=== PATIENT | male | born 1945 | race Hispanic/Latino ===

== ENCOUNTER 2023-09-08 05:31 | Observation (INO) | payer MEDICARE ==
[2023-09-06 09:39] LABS: BASOPHILS # (AUTO) 0.01 K/uL (0.00-0.20); BASOPHILS % (AUTO) 0.2 % (0.0-5.0); EOSINOPHILS # (AUTO) 0.11 K/uL (0.00-0.70); EOSINOPHILS % (AUTO) 1.7 % (0.0-8.0); HEMATOCRIT 48.7 % (42-54); IMMATURE GRANULOCYTE ABSOLUTE 0.02 K/uL (0-1); LYMPHOCYTES # (AUTO) 0.9 K/uL (1.0-4.8); LYMPHOCYTES % (AUTO) 14.2 % (21.0-51.0); MEAN CORPUSCULAR HEMOGLOBIN 32.2 pg (27.0-33.0); MEAN CORPUSCULAR HGB CONC 32.2 g/dL (32.0-36.0); MEAN CORPUSCULAR VOLUME 99.8 fL (79-99); MONOCYTES # (AUTO) 0.7 K/uL (0.1-1.0); MONOCYTES % (AUTO) 10.8 % (3.0-13.0); NEUTROPHILS # (AUTO) 4.8 K/uL (1.8-7.7); NEUTROPHILS % (AUTO) 72.8 % (40.0-77.0); PLATELET COUNT (AUTO) 148 K/uL (130-400); RED BLOOD CELL COUNT(AUTO) 4.88 MIL/uL (4.50-6.20); RED CELL DISTRIBUTION WIDTH 16.9 % (11.0-15.5); WHITE BLOOD COUNT (AUTO) 6.6 K/uL (4.8-10.8)
[2023-09-06 09:50] VITALS: BP 129/85; PULSE 79; RESP 18
[2023-09-06 09:51] LABS: INR 1.14 (0.85-1.15); PROTHROMBIN TIME 13.3 SEC (9.6-11.6)
[2023-09-06 09:53] LABS: PARTIAL THROMBOPLASTIN TIME 30.5 SEC (26.3-35.5)
[2023-09-06 09:56] LABS: CREATININE 2.2 mg/dL (0.5-1.3); POTASSIUM 3.6 mmol/L (3.5-5.1)
[2023-09-08] VITALS (17 sets, daily range): BP systolic 106–141; BP diastolic 68–93; PULSE 69–85; RESP 14–20; O2SAT 96–97
[~2023-09-08] VITALS: Ht 177.8 cm; Wt 84.4 kg
[~2023-09-08 05:31] MED LIST: AEC81 PO; EZET10TA48 PO; FURO20TA4 PO; GABA-529 PO; LEVO112C4 PO; LOPE2CAP PO; METO-391 PO; OMEP40CA21 PO; ROSU40TA70 PO; SACU1TAB7 PO; SPIR25TA6 PO; TIRZ5PEN SQ
[2023-09-08] MEDS: 0.9%NACL 1000ML 1,000 ML IV ONE (06:59)
[2023-09-08 07:11] LABS: CREATININE 2.3 mg/dL (0.5-1.3); POTASSIUM 3.4 mmol/L (3.5-5.1)
[2023-09-08] MEDS ORDERED: CEFAZOLIN SODIUM 1 GM VIAL ONE ×2 (07:22→11:25)
[2023-09-08] MEDS ORDERED: LIDOCAINE HCL 1% MDV 50ML VIAL ONE (07:22)
[2023-09-08] MEDS ORDERED: IODIXANOL 320 MG/ML 100 ML VIAL ONE (07:22)
[2023-09-08] MEDS ORDERED: BUPIVACAINE/PF 0.25% 30ML VIAL IJ ONE (07:43)
[2023-09-08] MEDS ORDERED: MIDAZOLAM HCL 1 MG/ML 2ML VIAL ONE ×4 (07:53→13:24)
[2023-09-08] MEDS ORDERED: MEPERIDINE-PF 25 MG/ML SYG ONE ×4 (07:53→13:24)
[2023-09-08] MEDS ORDERED: IOHEXOL-350 75 ML VIAL IV ONE (10:46)
[2023-09-08] MEDS ORDERED: BACITRACIN 1 EACH PACKET TP ONE (13:27)
[2023-09-08] MEDS ORDERED: THROMBIN-JMI 5000 UNIT/VIAL TP ONE (13:37)
[2023-09-08] MEDS ORDERED: FUROSEMIDE 20 MG TABLET PO PRN (14:30)
[2023-09-08] MEDS ORDERED: GABAPENTIN 100 MG CAPSULE PO PRN (14:30)
[2023-09-08] MEDS ORDERED: ACETAMINOPHEN WITH CODEINE 1 TAB TAB PO PRN (14:30)
[2023-09-08] MEDS ORDERED: ACETAMINOPHEN 500 MG TABLET PO PRN (14:30)
[2023-09-08] MEDS: FUROSEMIDE 20MG VIAL IV ONE (18:05)
[2023-09-08] MEDS: Rosuvastatin Calcium 40 MG PO SCH (21:21)
[2023-09-08] MEDS: EZETIMIBE 10 MG TAB PO SCH (21:22)
[2023-09-08] MEDS: SACUBITRIL/VALSARTAN 1 EACH TABLET PO SCH (21:22)
[2023-09-09 03:12] LABS: BASOPHILS # (AUTO) 0.02 K/uL (0.00-0.20); BASOPHILS % (AUTO) 0.3 % (0.0-5.0); EOSINOPHILS # (AUTO) 0.05 K/uL (0.00-0.70); EOSINOPHILS % (AUTO) 0.6 % (0.0-8.0); HEMATOCRIT 45.9 % (42-54); IMMATURE GRANULOCYTE ABSOLUTE 0.03 K/uL (0-1); LYMPHOCYTES # (AUTO) 0.6 K/uL (1.0-4.8); LYMPHOCYTES % (AUTO) 7.5 % (21.0-51.0); MEAN CORPUSCULAR HEMOGLOBIN 32.4 pg (27.0-33.0); MEAN CORPUSCULAR HGB CONC 31.6 g/dL (32.0-36.0); MEAN CORPUSCULAR VOLUME 102.5 fL (79-99); MONOCYTES # (AUTO) 0.8 K/uL (0.1-1.0); MONOCYTES % (AUTO) 9.9 % (3.0-13.0); NEUTROPHILS # (AUTO) 6.4 K/uL (1.8-7.7); NEUTROPHILS % (AUTO) 81.3 % (40.0-77.0); PLATELET COUNT (AUTO) 109 K/uL (130-400); RED BLOOD CELL COUNT(AUTO) 4.48 MIL/uL (4.50-6.20); WHITE BLOOD COUNT (AUTO) 7.9 K/uL (4.8-10.8)
[2023-09-09 03:20] LABS: CREATININE 2.3 mg/dL (0.5-1.3); POTASSIUM 3.7 mmol/L (3.5-5.1)
[2023-09-09 04:19] VITALS: BP 128/87; PULSE 73; RESP 20
[2023-09-09] MEDS: LEVOTHYROXINE 112 MCG TABLET PO SCH (06:04)
[2023-09-09 08:12] VITALS: BP 119/78; PULSE 71; RESP 18
[2023-09-09 08:30] VITALS: O2SAT 96
[2023-09-09] MEDS: ASPIRIN 81 MG EC TAB PO SCH (09:47)
[2023-09-09] MEDS: SPIRONOLACTONE 25 MG TAB PO SCH (09:47)
[2023-09-09] MEDS: METOPROLOL SUCCINATE 50 MG TAB.SR.24H PO SCH (09:47)
[2023-09-09] MEDS ORDERED: TRAM50TA4 PO (11:15)
[2023-09-09 11:55] VITALS: BP 135/93; PULSE 69; RESP 16
[2023-09-10] MEDS ORDERED: PANTOPRAZOLE 40 MG TAB DR PO SCH (09:00)
[2023-09-10] MEDS ORDERED: LOPERAMIDE HCL 2 MG CAP PO SCH (09:00)
[2023-09-15] MEDS ORDERED: TIRZEPATIDE 5 MG SQ SCH (09:00)
== END 2023-09-09 14:29 | disposition home or self-care (01) ==
LOC: DAH 05:31 → DAHIP 05:32 → 2DH 15:19
PROVIDERS: ADMIT Internal Medicine Cardiovascular Disease; ATTEND Internal Medicine Cardiovascular Disease
DX: I42.8 Other cardiomyopathies (principal); I50.22 Chronic systolic (congestive) heart failure; I25.10 Atherosclerotic heart disease of native coronary artery without angina pectoris; E78.5 Hyperlipidemia, unspecified; E03.9 Hypothyroidism, unspecified; E11.9 Type 2 diabetes mellitus without complications; E66.9 Obesity, unspecified; G47.33 Obstructive sleep apnea (adult) (pediatric); Z79.899 Other long term (current) drug therapy
CPT/HCPCS: 80048 ×3; 85025 ×2; 85610; 85730; 36415 ×3; 93005; 33225; 93454; 33264; 96374; 82948 ×4; 71045 ×2; C1769 ×5; C1894 ×3; C1732; C1882; C1900; G0378 ×24; J0690 ×2; J7030; J0665; J2250 ×4; J1940; J3490 ×2; J2175 ×4; J1644; Q9967 ×2; A4215; A4223 ×3; A4222; A4221; A4663; A4216; A4606; 99156; 99157

== ENCOUNTER → 2023-12-18 | Outpatient (CLI) | payer MEDICARE ==
[~2023-12-18] MED LIST changes: -ROSU40TA70 PO; +ROSU40TA88 PO; +TRAM50TA4 PO
== END | disposition home or self-care (01) ==
LOC: SHCH 14:18
PROVIDERS: ATTEND Internal Medicine Cardiovascular Disease
DX: I50.22 Chronic systolic (congestive) heart failure (principal)
CPT/HCPCS: 93306

== ENCOUNTER 2024-01-23 06:06 | Emergency (ER) | payer MEDICARE ==
[~2024-01-23] VITALS: Ht 179.1 cm; Wt 77.1 kg
[~2024-01-23 06:06] MED LIST changes: -AEC81 PO; +APIX5TAB PO; +D3/E1CAP PO; +FOLI0.8C PO; -GABA-529 PO; +LEVO100C4 PO; -LEVO112C4 PO; +MAGN250T35 PO; -OMEP40CA21 PO; -TIRZ5PEN SQ; -TRAM50TA4 PO
[2024-01-23 06:13] VITALS: BP 137/92; PULSE 74; RESP 18; TEMP 98.2; O2SAT 99
== END 2024-01-23 08:20 | disposition home or self-care (01) ==
LOC: EDH 06:06
DX: R04.0 Epistaxis (principal); I13.0 Hypertensive heart and chronic kidney disease with heart failure and stage 1 through stage 4 chronic kidney disease, or unspecified chronic kidney disease; E11.22 Type 2 diabetes mellitus with diabetic chronic kidney disease; N18.30 Chronic kidney disease, stage 3 unspecified; I50.9 Heart failure, unspecified; I48.91 Unspecified atrial fibrillation; Z79.01 Long term (current) use of anticoagulants; Z79.82 Long term (current) use of aspirin; Z79.85 Long-term (current) use of injectable non-insulin antidiabetic drugs; Z79.890 Hormone replacement therapy; Z79.899 Other long term (current) drug therapy; Z88.2 Allergy status to sulfonamides; Z88.8 Allergy status to other drugs, medicaments and biological substances; Z95.810 Presence of automatic (implantable) cardiac defibrillator
CPT/HCPCS: 30901

== ENCOUNTER 2024-02-18 17:10 | Emergency (ER) | payer MEDICARE ==
[~2024-02-18] VITALS: Ht 177.8 cm; Wt 77.1 kg
[2024-02-18] MEDS ORDERED: AMOX1TAB16 PO (17:38)
--- NOTE | 2024-02-18 17:39 | ERN ---
ED Note History of Present Illness Stated Complaint: TOOTH PAIN Chief Complaint: Tooth Ache/Pain Time Seen by MD: 17:12 Time Seen by Midlevel: 17:12 Dictation: The patient is a 78 year old male with history of afib, dm, chf who presents to the emergency department with complains of left lower tooth pain. Patient reports he occasionally gets infections. Denies any fevers or other complaints. Allergies: Coded Allergies: Sulfa (Sulfonamide Antibiotics) (Unverified Allergy, Unknown, 09/06/23) dapagliflozin (Unverified Allergy, Unknown, 09/06/23) semaglutide (Unverified Allergy, Unknown, 09/06/23) Home Meds Active Scripts Amoxicillin/Potassium Clav (Amox Tr-K Clv 875-125 mg Tab) 875 Mg-125 Mg Tablet, 1 TAB PO BID for 7 Days, #14 TAB 0 Refills Prov:AKIL LINDQUIST PAPER BAG PRESS OPERATOR 02/18/24 Reported Medications D3/E/Se/Soy Isofl/Tocoph/Lycop (Prostate 2.4 Capsule) 1,200-15-35 Capsule, 1 EACH PO AM, CAP 01/19/24 Folic Acid (Folic Acid) 0.8 Mg Capsule, 1 CAP PO DAILY for 30 Days, #30 CAP 0 Refills 01/19/24 Magnesium (Magnesium) 250 Mg Tablet, 1 TAB PO DAILY for 30 Days, #30 TAB 0 Refills 01/19/24 Apixaban (Eliquis) 5 Mg Tablet, 1 TAB PO BID for 30 Days, #60 TAB 0 Refills 01/19/24 Levothyroxine Sodium (Levothyroxine) 100 Mcg Capsule, 100 MCG PO AM, CAP 01/19/24 Sacubitril/Valsartan (Entresto 49 mg-51 mg Tablet) 49 Mg-51 Mg Tablet, 1 TAB PO BID for 30 Days, #60 TAB 0 Refills 01/19/24 Loperamide HCl (Loperamide) 2 Mg Capsule, 2 MG PO QODAY, CAP 09/06/23 Furosemide (Furosemide) 20 Mg Tablet, 20 MG PO AD PRN for SWELLING, TAB 09/06/23 Rosuvastatin Calcium (Rosuvastatin Calcium) 40 Mg Tablet, 40 MG PO HS, TAB 09/06/23 Spironolactone (Spironolactone) 25 Mg Tablet, 12.5 MG PO DAILY, TAB 09/06/23 Metoprolol Succinate (Metoprolol Succinate) 50 Mg Tab.er.24h, 50 MG PO DAILY, TAB 09/06/23 Ezetimibe (Ezetimibe) 10 Mg Tablet, 10 MG PO HS, TAB 09/06/23 Past Medical History Past Medical History: A-Fib, CHF, Diabetes-Type II, Heart Disease, Hypertension Surgical History: Pacer/AICD RN Note Reviewed/Agreed w/PFSH: Yes Review of System Dictation Constitutional: Negative for fever,chills, and weight loss Eyes: Negative for injury, pain,redness, and discharge ENT: Positive for tooth pain Negative for injury or swelling Cardiovascular: Negative for chest pain, palpitations, and edema Respiratory: Negative for shortness of breath, cough, and wheezing, Abdomen/GI: Negative for abdominal pain, nausea, vomiting, diarrhea, and constipation Back: Negative for injury and pain : Negative for injury, bleeding and discharge MS/Extremity: Negative for injury and deformity Skin: Negative for rash, and discoloration Neuro: Negative for headache, weakness, numbness, tingling, and seizure Psych: Negative for suicide ideation, homicidal ideation, and hallucinations Initial Vital Sign VS Vital Signs Date Time Temp Pulse Resp B/P (MAP) Pulse Ox O2 Delivery O2 Flow Rate FiO2 02/18/24 17:11 98.1 85 20 127/81 Room Air Physical Exam Dictation General: awake, alert, NAD Head/Face: Normocephalic, atraumatic Eyes: PERRL, EOMI, vision at baseline ENT: oral cavity clear, TMs clear, slight erythema to lower left gums, tooth decay present, missing teeth. Neck: Trachea midline, supple, no nuchal rigidity Cardiovascular: RRR, normal S1/S2, No MRGs, no JVD Respiratory: CTAB, no respiratory distress, No rales or wheezes Abdomen: Soft, non-tender, non-distended, normal bowel sounds, no guarding or rebound. Skin: Warm, dry, normal turgor, no rash MS/Extremity: Pulses equal, no cyanosis, neurovascular intact, FROM Neuro: COAx4, GCS 15, strength 5/5, CN 2-12 intact, normal cerebellar exam, normal gait, Psych: Normal behavior, mood, and affect normal Results (Laboratory/Radiology) Labs Reviewed?: Yes ED Course ED Course Orders Procedure Category Date Status Time Acetaminophen 325 Tab PHA 02/18/24 Complete (Tylenol 325mg Tab 17:30 Amox/Clav 875/125mg PHA 02/18/24 Complete Tab (Augmentin 875-1 17:30 Current Medications Medications (Trade) Dose Ordered Sig/Frank Route PRN Reason Start Time Stop Time Status Last Admin Dose Admin Acetaminophen (TYLenol 325MG TAB) 650 mg ONCE ONCE PO 02/18/24 17:30 02/18/24 17:35 DC 02/18/24 18:15 Amoxicillin/ Clavulanate Potassium (Augmentin 875-125 Tablet) 1 each ONCE ONCE PO 02/18/24 17:30 02/18/24 17:35 DC 02/18/24 18:15 Vital Signs Date Time Temp Pulse Resp B/P (MAP) Pulse Ox O2 Delivery O2 Flow Rate FiO2 02/18/24 17:11 98.1 85 20 127/81 Room Air Medical Decision Making MDM The patient is a 78 year old male with history of afib, dm, chf who presents to the emergency department with complains of left lower tooth pain. Patient reports he occasionally gets infections. Denies any fevers or other complaints. Patient will be treated with antibiotics and instructed to follow up with dentist. Differential diagnosis: Dental pain, dental caries Previous outside records reviewed: Old ER visits. Need for hospitalization: Patient does not meet criteria for hospitalization. Need for emergency major/minor surgery: No Patient's prior external medical records from other ER visits were reviewed by me as indicated. Prior testing and results from previous visits were reviewed. Prior tests were taken into account with medical decision making and resource utilization, independent historian/historians were used to obtain complete medical history. I independently interpreted the test that were performed, results were reviewed by me and considered findings on radiology if ordered. Medical management and examination interpretation discussions were had by me with other qualified healthcare professionals as indicated for the patient's care. DX & DISP Disposition: Discharge Departure Impression: Primary Impression: Dental caries Additional Impression: Gingivitis Condition: Stable Scripts Amoxicillin/Potassium Clav (Amox Tr-K Clv 875-125 mg Tab) 875 Mg-125 Mg Tablet 1 TAB PO BID for 7 Days, #14 TAB 0 Refills Prov: AKIL LINDQUIST PAPER BAG PRESS OPERATOR 02/18/24 Additional Instructions: Please follow up with PCP in 1-2 days. You need to visit with your dentist for further management of infection. Take antibiotics as prescribed. If symptoms worsen please return to ER. Referrals: SELF,REFERRAL (PCP) Time of Disposition: 17:39 I have reviewed the case, and I agree with, Diagnosis and Plan I personally scribed for AKIL LINDQUIST ([email or web address]) on 02/18/24 at 17:46. Electronically submitted by Dhaval Bermeo ([email or web address]). AKIL LINDQUIST Feb 18, 2024 17:39
[2024-02-18] MEDS: acetaMINOPHEN 325 MG TAB PO ONE (18:15)
[2024-02-18] MEDS: AMOX/CLAV 875/125MG TAB PO ONE (18:15)
[2024-02-18 18:35] VITALS: BP 121/79; PULSE 80; RESP 18; TEMP 98.1; O2SAT 97
== END 2024-02-18 18:36 | disposition home or self-care (01) ==
LOC: EDH 17:10
DX: K02.9 Dental caries, unspecified (principal); K05.10 Chronic gingivitis, plaque induced; E11.9 Type 2 diabetes mellitus without complications; I11.0 Hypertensive heart disease with heart failure; I50.9 Heart failure, unspecified; Z79.01 Long term (current) use of anticoagulants; Z79.899 Other long term (current) drug therapy; Z88.2 Allergy status to sulfonamides; Z95.810 Presence of automatic (implantable) cardiac defibrillator
CPT/HCPCS: 99283

== ENCOUNTER 2024-07-03 19:45 | Inpatient (IN) | payer MEDICARE ==
[~2024-07-03] VITALS: Ht 172.7 cm; Wt 77.5 kg
[~2024-07-03 19:45] MED LIST changes: +AMOX1TAB16 PO; -LEVO100C4 PO; +LEVO100C5 PO
[2024-07-03 20:14] LABS: BASOPHILS # (AUTO) 0.02 K/uL (0.00-0.20); BASOPHILS % (AUTO) 0.3 % (0.0-5.0); EOSINOPHILS # (AUTO) 0.12 K/uL (0.00-0.70); EOSINOPHILS % (AUTO) 1.7 % (0.0-8.0); HEMATOCRIT 42.7 % (42-54); IMMATURE GRANULOCYTE ABSOLUTE 0.02 K/uL (0-1); LYMPHOCYTES # (AUTO) 0.5 K/uL (1.0-4.8); MEAN CORPUSCULAR HEMOGLOBIN 33.7 pg (27.0-33.0); MEAN CORPUSCULAR HGB CONC 32.3 g/dL (32.0-36.0); MEAN CORPUSCULAR VOLUME 104.1 fL (79-99); MONOCYTES # (AUTO) 0.7 K/uL (0.1-1.0); MONOCYTES % (AUTO) 9.2 % (3.0-13.0); NEUTROPHILS # (AUTO) 5.8 K/uL (1.8-7.7); NEUTROPHILS % (AUTO) 81.5 % (40.0-77.0); PLATELET COUNT (AUTO) 145 K/uL (130-400); RED CELL DISTRIBUTION WIDTH 16.4 % (11.0-15.5); WHITE BLOOD COUNT (AUTO) 7.2 K/uL (4.8-10.8)
[2024-07-03] MEDS: ASPIRIN 325MG TAB PO SCH (20:17)
--- NOTE | 2024-07-03 20:18 | HMCIMG ---
PORTABLE CHEST RADIOGRAPH INDICATION: cp COMPARISON: 09/09/2023 FINDINGS: quality assurance monitor final leads overlie the field of view. Left sided dual chamber pacer and continuous leads remain in customary position. Heart size is normal. The pulmonary vascularity and lorenza appear normal. Left costophrenic angle is blunted with subjacent linear opacities. No evidence for consolidation. No pneumothorax detected. IMPRESSION: Small left pleural effusion with subjacent passive atelectasis.
[2024-07-03 20:22] LABS: CREATININE 2.4 mg/dL (0.5-1.3); POTASSIUM 4.8 mmol/L (3.5-5.1)
[2024-07-03 20:24] LABS: INR 1.2 (0.85-1.15); PROTHROMBIN TIME 12.5 SEC (9.6-11.6)
[2024-07-03 20:25] LABS: PARTIAL THROMBOPLASTIN TIME 34.7 SEC (26.3-35.5)
[2024-07-03 20:27] LABS: MAGNESIUM 1.9 mg/dL (1.80-2.40)
[2024-07-03 20:44] LABS: B-TYPE NATRIURETIC PEPTIDE 1580 pg/mL (0-100)
--- NOTE | 2024-07-03 20:57 | ERN ---
ED Note History of Present Illness Stated Complaint: CHEST PAIN Chief Complaint: Chest Pain Time Seen by MD: 19:49 Time Seen by Midlevel: 19:49 Dictation: The Patient is a 79-year-old male with a history of AFib on Eliquis, hypertension, heart failure with AICD placement who presents to the emergency department via EMS with complaints of chest pain and nausea. Per EMS onset was three days ago the patient reports he started with the symptoms today after he was dropped off by the bus and had to walk 300 [address] to [address] house. Patient reports he was dyspneic, had nausea and diaphoretic but denies any chest pain. Allergies: Coded Allergies: Sulfa (Sulfonamide Antibiotics) (Unverified Allergy, Unknown, 09/06/23) dapagliflozin (Unverified Allergy, Unknown, 09/06/23) semaglutide (Unverified Allergy, Unknown, 09/06/23) Home Meds Active Scripts Amoxicillin/Potassium Clav (Amox Tr-K Clv 875-125 mg Tab) 875 Mg-125 Mg Tablet, 1 TAB PO BID for 7 Days, #14 TAB 0 Refills Prov:AKIL LINDQUIST STEAM AND POWER SUPERVISOR 02/18/24 Reported Medications D3/E/Se/Soy Isofl/Tocoph/Lycop (Prostate 2.4 Capsule) 1,200-15-35 Capsule, 1 EACH PO AM, CAP 01/19/24 Folic Acid (Folic Acid) 0.8 Mg Capsule, 1 CAP PO DAILY for 30 Days, #30 CAP 0 Refills 01/19/24 Magnesium (Magnesium) 250 Mg Tablet, 1 TAB PO DAILY for 30 Days, #30 TAB 0 Refills 01/19/24 Apixaban (Eliquis) 5 Mg Tablet, 1 TAB PO BID for 30 Days, #60 TAB 0 Refills 01/19/24 Levothyroxine Sodium (Levothyroxine) 100 Mcg Capsule, 100 MCG PO AM, CAP 01/19/24 Sacubitril/Valsartan (Entresto 49 mg-51 mg Tablet) 49 Mg-51 Mg Tablet, 1 TAB PO BID for 30 Days, #60 TAB 0 Refills 01/19/24 Loperamide HCl (Loperamide) 2 Mg Capsule, 2 MG PO QODAY, CAP 09/06/23 Furosemide (Furosemide) 20 Mg Tablet, 20 MG PO AD PRN for SWELLING, TAB 09/06/23 Rosuvastatin Calcium (Rosuvastatin Calcium) 40 Mg Tablet, 40 MG PO HS, TAB 09/06/23 Spironolactone (Spironolactone) 25 Mg Tablet, 12.5 MG PO DAILY, TAB 09/06/23 Metoprolol Succinate (Metoprolol Succinate) 50 Mg Tab.er.24h, 50 MG PO DAILY, TAB 09/06/23 Ezetimibe (Ezetimibe) 10 Mg Tablet, 10 MG PO HS, TAB 09/06/23 Past Medical History Past Medical History: A-Fib, CHF, Diabetes-Type II, Heart Disease, Hypertension Surgical History: Pacer/AICD RN Note Reviewed/Agreed w/PFSH: Yes Review of System Dictation Constitutional: Negative for fever,chills, and weight loss Eyes: Negative for injury, pain,redness, and discharge ENT: Negative for injury,pain or swelling Cardiovascular: Negative for palpitations, and edema positive for chest pain Respiratory: Negative for , cough, and wheezing, positive for shortness of breath Abdomen/GI: Negative for abdominal pain, vomiting, diarrhea, and constipation positive for nausea Back: Negative for injury and pain : Negative for injury, bleeding and discharge MS/Extremity: Negative for injury and deformity Skin: Negative for rash, and discoloration Neuro: Negative for headache, weakness, numbness, tingling, and seizure Psych: Negative for suicide ideation, homicidal ideation, and hallucinations Initial Vital Sign VS Vital Signs Date Time Temp Pulse Resp B/P (MAP) Pulse Ox O2 Delivery O2 Flow Rate FiO2 07/03/24 19:48 98.4 84 16 104/67 96 Room Air 0 07/03/24 20:08 21 Physical Exam Dictation Vital Signs reviewed General Appearance: Alert, oriented x 3, no acute distress, well developed, nour ished. Head and Face: non-traumatic. Eyes: PERRL, pink conjunctivas, eyelid no trauma, anterior chamber with arcus senilis. Ears: Pinnas intact and no signs of trauma or erythema ear canals clear and no discharge TM no erythema Nose: No discharge, no bleeding. Oropharynx: Mouth normal, tongue pink. pharynx clear,no erythema, tonsils no exudates, no abscesses noted, mucous memb shweta moist Neck: Supple, non-tender, no thyromegaly, no masses, no JVD, no bruits Breast:Deferred Chest:No tenderness, no crepitus, no paradoxical movement, no retractions Lungs:Clear, well-ventilated, symmetric, no rales, no wheezing, no rhonchi, no s tridor, good breath sounds bilaterally Heart: Regular rate, regular rhythm, no murmur, no gallops Vascular: no peripheral edema, Abdomen: Soft, positive bowel sounds, nondistended, no guarding, nontender, no rebound, no masses no hepatomegaly, no splenomegaly, no Jean-Baptiste's sign, no hernias. Rectal: Deferred Genital: Deferred Neurological: Normal speech, motor function intact, sensory function intact Musculoskeletal: Neck nontender, full range of motion, back nontender, full range of motion, Extremities: nontender, full range of motion Skin: Color pink, dry, no turgor, no rash, no lacerations, no abrasions, no contusions. Lymphatic: Deferred Results (Laboratory/Radiology) Laboratory/Radiology Laboratory Tests Test 07/03/24 20:06 White Blood Count 7.2 K/uL (4.8-10.8) Red Blood Count 4.10 MIL/uL (4.50-6.20) L Hemoglobin 13.8 g/dL (14.0-18.0) L Hematocrit 42.7 % (42-54) Mean Corpuscular Volume 104.1 fL (79-99) H Mean Corpuscular Hemoglobin 33.7 pg (27.0-33.0) H Mean Corpuscular Hemoglobin Concent 32.3 g/dL (32.0-36.0) Red Cell Distribution Width 16.4 % (11.0-15.5) H Platelet Count 145 K/uL (130-400) Mean Platelet Volume 11.6 fL (7.5-10.5) H Immature Granulocyte % (Auto) 0.3 % (0-1) Neutrophils (%) (Auto) 81.5 % (40.0-77.0) H Lymphocytes (%) (Auto) 7.0 % (21.0-51.0) L Monocytes (%) (Auto) 9.2 % (3.0-13.0) Eosinophils (%) (Auto) 1.7 % (0.0-8.0) Basophils (%) (Auto) 0.3 % (0.0-5.0) Neutrophils # (Auto) 5.8 K/uL (1.8-7.7) Lymphocytes # (Auto) 0.5 K/uL (1.0-4.8) L Monocytes # (Auto) 0.7 K/uL (0.1-1.0) Eosinophils # (Auto) 0.12 K/uL (0.00-0.70) Basophils # (Auto) 0.02 K/uL (0.00-0.20) Absolute Immature Granulocyte (auto 0.02 K/uL (0-1) Nucleated Red Blood Cells 0.0 % (0.0-0.19) White Cell Morphology Comment See comments Prothrombin Time 12.5 SEC (9.6-11.6) H Prothromb Time International Ratio 1.20 (0.85-1.15) H Activated Partial Thromboplast Time 34.7 SEC (26.3-35.5) Sodium Level 140 mmol/L (136-145) Potassium Level 4.8 mmol/L (3.5-5.1) Chloride Level 106 mmol/L (101-111) Carbon Dioxide Level 22 mmol/L (21-32) Blood Urea Nitrogen 29 mg/dL (7-18) H Creatinine 2.4 mg/dL (0.5-1.3) H Glomerular Filtration Rate Calc 27 mL/min (>90) Random Glucose 200 mg/dL (70-105) H Total Calcium 8.7 mg/dL (8.5-10.1) Magnesium Level 1.90 mg/dL (1.80-2.40) Total Creatine Kinase 70 U/L (21-232) Troponin I High Sensitivity 118 ng/L (4-75) *H B-Type Natriuretic Peptide 1580 pg/mL (0-100) H REASON: cp ORDERING PHYSICIAN: AKIL LINDQUIST PROCEDURE: CXR1VW - CHEST 1VW PORTABLE CHEST RADIOGRAPH INDICATION: cp COMPARISON: 09/09/2023 FINDINGS: real estate recruiter leads overlie the field of view. Left sided dual chamber pacer and continuous leads remain in customary position. Heart size is normal. The pulmonary vascularity and lorenza appear normal. Left costophrenic angle is blunted with subjacent linear opacities. No evidence for consolidation. No pneumothorax detected. IMPRESSION: Small left pleural effusion with subjacent passive atelectasis. Labs Reviewed?: Yes EKG: (+) rhythm (AFib, ventricular paced rhythm) EKG Comment: Date:07/03/2024 Time:1949 Ventricular rate:74 SD interval: QRS duration:155 QT/QTc: EKG interpretation: AFib, ventricular paced rhythm Reviewed by ED Attending no STEMIDr. Velazquez ED Course ED Course Orders Procedure Category Date Status Time Cbc With Differential LAB 07/03/24 Complete 20:02 B-Type Natriuretic LAB 07/03/24 Complete Peptide 20:02 Chest 1vw RAD 07/03/24 Resulted 20:02 12 Lead Ekg Tracing- EKG 07/03/24 Logged Technical 20:02 Magnesium LAB 07/03/24 Complete 20:02 Creatine Kinase, Total LAB 07/03/24 Complete 20:02 Troponin I High LAB 07/03/24 Complete Sensitivity 20:02 Aspirin 325mg Tab PHA 07/03/24 In Process (Aspirin 325mg Tab) 20:30 Urinalysis Profile LAB 07/03/24 Logged 20:02 Basic Metabolic Panel LAB 07/03/24 Complete 20:02 Pt And Ptt LAB 07/03/24 Complete 20:03 Drug Screen Urine LAB 07/03/24 Logged 20:06 Furosemide 20mg Vial PHA 07/03/24 Complete (Lasix 20mg Vial) 21:00 Troponin I High LAB 07/03/24 Logged Sensitivity 20:58 Edm Admit Bridge Order ADM 07/03/24 Verified 21:06 Current Medications Medications (Trade) Dose Ordered Sig/Frank Route PRN Reason Start Time Stop Time Status Last Admin Dose Admin Aspirin (Aspirin 325mg Tab) 325 mg ONCE PO 07/03/24 20:30 07/03/24 23:59 07/03/24 20:17 Furosemide (LASix 20MG VIAL) 20 mg ONCE ONCE IV 07/03/24 21:00 07/03/24 21:01 DC Vital Signs Date Time Temp Pulse Resp B/P (MAP) Pulse Ox O2 Delivery O2 Flow Rate FiO2 07/03/24 20:08 98.1 85 13 119/73 97 Room Air* 0 21 07/03/24 19:48 98.4 84 16 104/67 96 Room Air 0 HEART Score Response (Comments) Value History: High suspicion (+2) 2 EKG: Normal 0 Age: > 65yrs (+2) 2 Risk Factors: 3+ risk factors (+2) 2 Initial Troponin: 1-3x Normal Limit (+1) 1 HEART Score Risk: High Risk for MACE (7-10) Total 7 Medical Decision Making [facility] MDM: The Patient is a 79-year-old male with a history of AFib on Eliquis, hypertension, heart failure with AICD placement who presents to the emergency department via EMS with complaints of chest pain and nausea. Per EMS onset was three days ago the patient reports he started with the symptoms today after he was dropped off by the bus and had to walk [address] house. Patient reports he was dyspneic, had nausea and diaphoretic but denies any chest pain. CBC showed no leukocytosis, mild microcytic anemia, chemistry showed no electrolyte imbalance, glucose of 200, creatinine of 2.4, similar to from previous visits, troponin of 118, BNP of a 1580. X-ray showed small left pleural effusion with subjacent passive atelectasis. Patient currently with no chest pain. We will be admitted for further evaluation and management. Differential diagnosis: ACS, CHF exacerbation, electrolyte imbalance, dehydration, pneumonia, pneumothorax Comorbidities: AFib, CHF, hypertension, CKD Tests considered and not ordered secondary to shared decision making include: none Previous outside records reviewed: none Risk of complication and/or morbidity or mortality of patient management: The patient meets criteria for admission. Need for emergency major/minor surgery: No There are no social concerns with this patient. I independently interpreted the tests I ordered (labs, urinalysis, etc.). I discussed the case with the hospitalist for admission. [facility] who accepts admission I discussed the case with the following specialists: none. Historian: pateint. I independently interpreted imaging studies and EKGs that I ordered (US, CT, XR, EKG, etc.). External chart review: none. Medical management and examination interpretation discussions were had by me with other qualified healthcare professionals as indicated for the patient's care. Critical Care Note Critical Time: other (36) Comment(s) Total critical care time was 36 minutes. Excluding time for procedures. Management of critically ill patient with concern for acute decompensation. Management included interpretation of laboratory values and imaging, hemodynamics, time for consultation with consultants and admitting physician. DX & DISP Disposition: Inpatient Decision to Admit Date: Jul 03, 2024 Decision to Admit Time: 21:10 Departure Impression: Primary Impression: NSTEMI (non-ST elevated myocardial infarction) Additional Impressions: Chest pain, Elevated troponin, CHF exacerbation, CKD (chronic kidney disease), Uncontrolled diabetes mellitus with hyperglycemia Condition: Stable Referrals: HEIDI HALL MD (PCP) I have reviewed the case, and I agree with, Diagnosis and Plan AKIL LINDQUIST [facility] Jul 03, 2024 20:57
--- NOTE | 2024-07-03 21:10 | HP ---
[facility] HISTORY AND PHYSICAL Date of Service: Jul 03, 2024 Time of Service: 21:09 PCP: Siddhartha Corea HISTORY OF PRESENT ILLNESS: This is a 79-year-old male with past medical history of hypertension, hypothyroidism, atrial fibrillation, CHF with AICD, hyperlipidemia, BPH and diabetes who was brought by ambulance to the ED for complaints of chest pain and nausea which started 3 days ago.As per patient he was carrying groceries today and was dropped off by the bus and he had to walk 300 yards to his house.Upon a rrival to his house patient was short of breath but he managed to cook his food and eat his meal.Patient states he took a nap for 2 hours he said and when he woke up he was still having shortness of breath and jaw pain as well so he called his relative who is a nurse practitioner and instructed him to go to the ER ,thus prompted this admission.Patient also reports he never had chest discomfort only jaw pain and he asked the EMS for nitrostat but didn give him he said. Upon arrival to ER patient was not having chest pain but continues to be short of breath and he requested for oxygen.Seen and examined patient in the ER awake,alert and coherent on oxygen supplementation. Patient denies any chest pain,palpitation,nausea,vomiting,cough and shortness of breath. Latest vital signs temperature 98.1, heart rate 85, blood pressure 119/73, saturation 97% on room air. Labs: Hemoglobin 13, hematocrit 42, platelet count 145. Sodium 140, potassium 4.8, chloride 106, BUN 29, creatinine 2.4, GFR 27, glucose 200 trop onin 118, BNP 1580. Chest x-ray result revealed small left pleural effusion subjacent passive atelectasis. EKG result revealed AFib/a flutter and ventricular paced rhythm heart rate 74. While in the ER patient received furosemide 20 mg IV and aspirin 325 mg p.o. We will admit patient for further medical management. REVIEW OF SYSTEMS CONSTITUTIONAL: Denies fevers, chills, or night sweats. No unintentional weight loss reported. NEUROLOGICAL: Denies headache, amaurosis fugax, motor weakness, sensory deficit, vertigo/spinning sensation, gait abnormalities, or tremors. ENT: No hearing loss, otalgia, otorrhea, rhinitis, rhinorrhea, hoarseness, or sore throat. CARDIOVASCULAR: Denies any exertional angina, dyspnea on exertion, orthopnea, paroxysmal nocturnal dyspnea, palpitations, life-threatening arrhythmias, claudication. PULMONARY: Complaints of shortness of breaths Denies cough, phlegm/sputum, hemoptysis, pleuritic chest pain. SLEEP: Denies morning headaches, daytime somnolence or napping. Denies difficulty falling asleep, staying asleep, waking from sleep. Denies knowledge of snoring. GASTROINTESTINAL: Denies any type of dysphagia to either liquids or solids. Denies nausea, vomiting, pyrosis, early satiety, abdominal pain, diarrhea, constipation, or changes in stool consistency or caliber. Denies coffee-ground emesis, hematemesis, hematochezia, or melanotic stools. GENITOURINARY: Denies frequency, urgency, nocturia, hematuria or incontinence (Storage/Irritative symptoms.) Low urinary stream, straining to void, urinary intermittency or hesitancy, splitting of the voiding stream, terminal dribbling. ENDOCRINOLOGIC: Denies polyuria, polydipsia, polyphagia or heat/cold intolerances. HEMATOLOGIC: Denies thrombophilia/previous clots, or coagulopathy/bleeding disorders. ONCOLOGIC: Denies personal history of malignancy. DERMATOLOGIC: Denies rashes or pruritus. PSYCHIATRIC: Denies any suicidal or homicidal ideation. Denies hallucinations. PAST MEDICAL HISTORY: [ hypertension, hypothyroidism, atrial fibrillation, CHF with AICD, hyperlipidemia, BPH and diabetes ] PAST SURGICAL HISTORY: [ Left AICD , right eye surgery, nose surgery, cardiac catheterization, cholecystectomy] PAST SOCIAL HISTORY: [ Patient lives alone. Patient denies alcohol tobacco and recreational drug use ] FAMILY HISTORY: [ Noncontributory ] Coded Allergies: Sulfa (Sulfonamide Antibiotics) (Unverified Allergy, Unknown, 09/06/23) dapagliflozin (Unverified Allergy, Unknown, 09/06/23) semaglutide (Unverified Allergy, Unknown, 09/06/23) PHYSICAL EXAM GENERAL APPEARANCE: The patient is awake, alert, and oriented, in no acute cardiopulmonary distress. NEUROLOGICAL: Cranial nerves II-XII grossly intact. Motor is 5/5 in bilateral upper and lower extremities proximal to distal. No sensory deficits. HEENT: Face is symmetric. Pupils are equal and reactive. Extraocular movements are intact. NECK: Supple. No JVD. No thyromegaly. No submental, submandibular, pre- /postauricular, occipital or supraclavicular lymphadenopathy. CHEST: Normal chest expansion. No Telemetry. LUNGS: Absence of any rales, rhonchi or any wheezing. CARDIOVASCULAR: Regular. S1 and S2 normal. No appreciable rubs, murmurs or gallops. ABDOMEN: Soft, nontender, and nondistended. There is no rebound, voluntary guarding, or rigidity. : Deferred. No Solo. EXTREMITIES: Non-edematous and not cyanotic. No clubbing. Good capillary refill. SKIN: No skin breakdown. Vital Sign (Last 24 Hours) 07/03/24 20:08 Temp 98.1 Pulse 85 Resp 13 B/P (MAP) 119/73 Pulse Ox 97 O2 Delivery Room Air* O2 Flow Rate 0 FiO2 21 LABS: Laboratory: Test 07/03/24 20:06 Range/Units White Blood Count 7.2 4.8-10.8 K/uL Red Blood Count 4.10 L 4.50-6.20 MIL/uL Hemoglobin 13.8 L 14.0-18.0 g/dL Hematocrit 42.7 42-54 % Mean Corpuscular Volume 104.1 H 79-99 fL Mean Corpuscular Hemoglobin 33.7 H 27.0-33.0 pg Mean Corpuscular Hemoglobin Concent 32.3 32.0-36.0 g/dL Red Cell Distribution Width 16.4 H 11.0-15.5 % Platelet Count 145 130-400 K/uL Mean Platelet Volume 11.6 H 7.5-10.5 fL Immature Granulocyte % (Auto) 0.3 0-1 % Neutrophils (%) (Auto) 81.5 H 40.0-77.0 % Lymphocytes (%) (Auto) 7.0 L 21.0-51.0 % Monocytes (%) (Auto) 9.2 3.0-13.0 % Eosinophils (%) (Auto) 1.7 0.0-8.0 % Basophils (%) (Auto) 0.3 0.0-5.0 % Neutrophils # (Auto) 5.8 1.8-7.7 K/uL Lymphocytes # (Auto) 0.5 L 1.0-4.8 K/uL Monocytes # (Auto) 0.7 0.1-1.0 K/uL Eosinophils # (Auto) 0.12 0.00-0.70 K/uL Basophils # (Auto) 0.02 0.00-0.20 K/uL Absolute Immature Granulocyte (auto 0.02 0-1 K/uL Nucleated Red Blood Cells 0.0 0.0-0.19 % White Cell Morphology Comment See comments Prothrombin Time 12.5 H 9.6-11.6 SEC Prothromb Time International Ratio 1.20 H 0.85-1.15 Activated Partial Thromboplast Time 34.7 26.3-35.5 SEC Sodium Level 140 136-145 mmol/L Potassium Level 4.8 3.5-5.1 mmol/L Chloride Level 106 101-111 mmol/L Carbon Dioxide Level 22 21-32 mmol/L Blood Urea Nitrogen 29 H 7-18 mg/dL Creatinine 2.4 H 0.5-1.3 mg/dL Glomerular Filtration Rate Calc 27 >90 mL/min Random Glucose 200 H 70-105 mg/dL Total Calcium 8.7 8.5-10.1 mg/dL Magnesium Level 1.90 1.80-2.40 mg/dL Total Creatine Kinase 70 21-232 U/L Troponin I High Sensitivity 118 *H 4-75 ng/L B-Type Natriuretic Peptide 1580 H 0-100 pg/mL Current Medications Medications (Trade) Dose Ordered Sig/Frank Route PRN Reason Start Time Stop Time Status Last Admin Dose Admin Aspirin (Aspirin 325mg Tab) 325 mg ONCE PO 07/03/24 20:30 07/03/24 23:59 07/03/24 20:17 325 MG DIAGNOSTICS / RADIOLOGY: [ ] ASSESSMENT: Elevated troponin,jaw pain R/O ACS POA Acute on chronic heart failure POA Acute on chronic kidney disease POA Uncontrolled diabetes POA AICD status POA Atrial fibrillation/atrial flutter POA Hypertension POA Hyperlipidemia POA Hypothyroidism POA BPH POA PLAN: We will admit patient in PCCU We will start on heart healthy diet We will start on aspirin 81 mg p.o. daily We will start on furosemide 20 mg IV b.i.d. We will start on Famotidine 20 mg p.o. daily for GI prophylaxis We will replace electrolytes as needed per protocol We will start on insulin sliding scale AC & HS with hypoglycemia protocol We will add prn medication for fever,pain,cough and nausea We will reconcile home meds once medlist available We will trend troponin q.6 x3 We will follow up urine drug screen and urinalysis result We will request daily weight and strict I&O per nursing We will restrict fluid 1.5 L per day We will request labs in am We will seek Cardiology consultation We will seek Nephrology consultation Further orders to follow depending on above results Case discussed with attending physician and came up with above treatment and plan of care. ADVANCED CARE PLANNING 1. Which of the following were discussed? Hospice Care - No Therapeutic options - Yes Advance Directives - No Other discussions - 2. Discussed with who? Patient 3. Voluntary nature of this service was explained to the patient? Yes 4. Amount of time spent - __20 5. Reviewed by Physician? (if this service was performed by NPP) Yes Patient seen and examined by me. Agree with note by PAPER FOLDER SEE ADDITIONAL ORDERS PER CHART DISCUSSED WITH NURSING STAFF KIMMIE ALEMAN UPHOLSTERER APPRENTICE Jul 03, 2024 21:09
[2024-07-03] MEDS ORDERED: acetaMINOPHEN 325 MG TAB PO PRN (21:30)
[2024-07-03] MEDS ORDERED: NITROGLYCERIN 0.4 MG SL TAB SL PRN (21:30)
[2024-07-03] MEDS ORDERED: GLUCAGON 1MG KIT 1 MG ML IM PRN (21:30)
[2024-07-03] MEDS ORDERED: DEXTROSE 50%-WATER 50 ML DISP.SYRIN IV PRN (21:30)
[2024-07-03] MEDS ORDERED: ondanSETRON 4MG INJ IV PRN (21:30)
--- NOTE | 2024-07-03 21:38 | NUR ---
PROVIDER ASH AT BEDSIDE AT THIS TIME
[2024-07-03] MEDS: furoSEMIDE 20MG VIAL IV SCH (22:00)
[2024-07-03] MEDS: INSULIN humuLIN R 100 UNIT/ML 3ML SQ SCH (22:00)
[2024-07-03] MEDS: FAMOTIDINE 20MG TAB PO SCH (22:34)
[2024-07-03] MEDS: furoSEMIDE 20MG VIAL IV ONE (22:39)
[2024-07-04] VITALS (20 sets, daily range): BP systolic 98–131; BP diastolic 55–86; PULSE 64–86; RESP 13–81; TEMP 98–98.6; O2SAT 97–98
--- NOTE | 2024-07-04 01:36 | NUR ---
ATTEMPT TO GIVE REPORT AT THIS TIME. PENDING CALL BACK.
[2024-07-04 01:41] LABS: APPEARANCE,URINE CLEAR (CLEAR); BILIRUBIN,URINE NEGATIVE (NEGATIVE); COLOR,URINE LIGHT-YELLOW (YELLOW); GLUCOSE, URINE (UA) NEGATIVE (NEGATIVE); KETONES,URINE NEGATIVE (NEGATIVE); LEUKOCYTE ESTERASE ,URINE NEGATIVE Leu/uL (NEGATIVE); NITRATE,URINE NEGATIVE (NEGATIVE); PH,URINE 5.5 (5.0-8.0); PROTEIN,URINE NEGATIVE (NEGATIVE); UROBILINOGEN,URINE 0.2 mg/dL (0.2-1.0)
[2024-07-04 01:44] LABS: ADD UA MICROSCOPIC YES
[2024-07-04 01:45] LABS: BACTERIA,URINE RARE /HPF (None Seen); MUCUS,URINE RARE LPF (None Seen); WBC,URINE 0-1 /HPF (0-1)
[2024-07-04 01:47] LABS: AMPHET/METH SCREEN,URINE NEGATIVE (NEGATIVE); BARBITURATE SCREEN, URINE NEGATIVE (NEGATIVE); BENZODIAZEPINES SCREEN,URINE NEGATIVE (NEGATIVE); CANNABINOID SCREEN,URINE NEGATIVE (NEGATIVE); COCAINE SCREEN,URINE NEGATIVE (NEGATIVE); OPIATE SCREEN,URINE NEGATIVE (NEGATIVE); PHENCYCLIDINE SCREEN,URINE NEGATIVE (NEGATIVE)
--- NOTE | 2024-07-04 02:38 | NUR ---
REPORT GIVEN TO NELL MON AT THIS TIME
[2024-07-04 05:04] LABS: BASOPHILS # (AUTO) 0.04 K/uL (0.00-0.20); BASOPHILS % (AUTO) 0.3 % (0.0-5.0); EOSINOPHILS # (AUTO) 0.07 K/uL (0.00-0.70); EOSINOPHILS % (AUTO) 0.5 % (0.0-8.0); HEMATOCRIT 34.8 % (42-54); IMMATURE GRANULOCYTE ABSOLUTE 0.11 K/uL (0-1); LYMPHOCYTES # (AUTO) 1.5 K/uL (1.0-4.8); MEAN CORPUSCULAR HEMOGLOBIN 30.3 pg (27.0-33.0); MEAN CORPUSCULAR HGB CONC 32.8 g/dL (32.0-36.0); MEAN CORPUSCULAR VOLUME 92.6 fL (79-99); MONOCYTES # (AUTO) 1.1 K/uL (0.1-1.0); MONOCYTES % (AUTO) 8.2 % (3.0-13.0); NEUTROPHILS # (AUTO) 10.6 K/uL (1.8-7.7); NEUTROPHILS % (AUTO) 79.2 % (40.0-77.0); PLATELET COUNT (AUTO) 280 K/uL (130-400); RED BLOOD CELL COUNT(AUTO) 3.76 MIL/uL (4.50-6.20); RED CELL DISTRIBUTION WIDTH 13.4 % (11.0-15.5); WHITE BLOOD COUNT (AUTO) 13.3 K/uL (4.8-10.8)
[2024-07-04 05:12] LABS: HEMOGLOBIN A1C 6.4 % (4.0-6.0)
[2024-07-04 05:16] LABS: % IRON SATURATION 10.4 % (30-44)
[2024-07-04 05:17] LABS: ALBUMIN 2.8 g/dL (3.5-5.0); BILIRUBIN,TOTAL 0.3 mg/dL (0.2-1.0); CREATININE 1.5 mg/dL (0.5-1.3); MAGNESIUM 1.8 mg/dL (1.80-2.40); TOTAL PROTEIN, SERUM 6.4 g/dL (6.0-8.3)
[2024-07-04 05:33] LABS: B-TYPE NATRIURETIC PEPTIDE 201 pg/mL (0-100)
[2024-07-04] MEDS: levoTHYROxine 100 MCG TABLET PO SCH (06:23)
--- NOTE | 2024-07-04 06:55 | EKG ---
[facility] Test Date: 2024-07-03 Test Time: 19:50:07 Pat Name: DAVID MATHEW Department: [facility] Room: 208 1 Gender: M Electrician Helper: [id number] : 1945 Requested By: AKIL LINDQUIST Order Number: [id number] Reading MD: Michael Jefferson Measurements Intervals [place]kinson Rate: 74 P: 0 FL: 0 QRS: 203 QRSD: 155 T: 0 QT: 0 QTc: 0 Interpretive Statements Afib/flutter and ventricular-paced rhythm Biventricular paced rhythm Compared to ECG 09/06/2023 08:25:09 Ventricular premature complex(es) no longer present Electronically Signed On 07-05-2024 07:05:50 CDT by Michael Jefferson Please click the below link to view image of tracing.
--- NOTE | 2024-07-04 07:21 | NUR ---
PATIENT IN FOR SOB AND CHEST PAIN. PATIENT DENIES ANY CHEST PAIN THIS MORNING. INFORMED PATIENT OF ELEVATED TROPONIN AND CONTINUAL MONITORING. INFORMED PATIENT THAT HIS HOME MEDICATIONS WOULD BE CONTINUED, INCLUDING HIS DIURETICS, BETA DEDRA, AND ANTIHYPERTENSIVE MEDICATIONS. PATIENT VERBALIZED UNDERSTANDING. PAGED CARDIOLOGY FOR CONSULTATION OF PATIENT.
--- NOTE | 2024-07-04 08:28 | CONS ---
[facility] Cardiology Consultation Note Cardiology consult dictated for Mario Pickett MD Date of service 07/04/2024 Primary periodontist: Dr. Reyes Chief complaint: Jaw pain Reason for consult: Elevated troponin History of present illness: This is a 79-year-old male patient of Dr. Reyes presented via EMS. He started with symptoms after he walked 300 yd to his home developed chin and perioral pain that lasted approximately 30 minutes accompani ed by shortness of breath. This was nonexertional and not associated with nausea vomiting or diaphoresis. He experienced same symptoms the day before. On arrival 12 lead EKG demonstrated a paced rhythm with questionable atrial fibrillation atrial flutter and a controlled rate. BNP was 1580 and initial troponin of 118. Following troponin was 118 at 9:00 p.m. [place] 4:[place] [address]. He has a history of left heart catheterization August of 2023 with 30% mid diffuse LAD stenosis and 30% left main stenosis. He has history of nonischemic cardiomyopathy with last ejection fraction 15-20% on echocardiogram 08/12/2023. Study demonstrated right ventricle with oscillating thickening of the right atrial lead consistent with possible fibrotic stranding versus thrombus, moderate MR, moderate TR with akinetic anterior-septal wall. He has a history of biventricular ICD Medtronic Claria MRI compatible. BUN this admission 32 with a creatinine of 1.5 and a GFR of 48 with history of CKD 4. Currently the patient is comfortable without complaints or events overnight. 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 Implantation Medtronic 05/16/2014 status upgrade to a biventricular AICD with a Medtronic cleria MRI IMPREGNATING HELPER device 09/08/[address] [place] Ascencio. Allergies: Sulfa, Rebylsus, Farxiga Family history: Noncontributory Social history: Patient denies tobacco alcohol or illicit drug use Current medications: Atorvastatin, acetamide, spironolactone, Entresto, metoprolol succinate, Eliquis, aspirin, levothyroxine, furosemide IV. Please see MAR Review of blood work: Troponin high sensitivity 118, 118, 92222. Basic meta bolic panel with a sodium of 141, potassium 4.0, BUN of 32, creatinine of 1.5 and a GFR of 45 with magnesium of 1.8. CBC white blood cells 13.3 hemoglobin of 11.4, hematocrit 34.8 and platelets of 280. Physical exam: Blood pressure 122/57 pulse of 74 beats per minute and regular, lungs clear to auscultation O2 saturation 97% on room air. Neck is supple no jugular vein distention no carotid bruits. Lower extremities plus one edema bilaterally the patient is alert awake and oriented. All others within normal limits. Assessment: Angina Elevated troponin (118, 118, 40,711) Acute on chronic systolic congestive heart failure (BNP 1580) Left heart catheterization August of 2023 with 30% mid diffuse LAD stenosis and 30% left main stenosis. Nonischemic cardiomyopathy with last ejection fraction 15-20% on echocardiogram 08/12/2023. Medtronic 05/16/2014 status upgrade to a biventricular AICD with a Medtronic cleria MRI IMPREGNATING HELPER device 09/08/[address] [place] Ascencio. 08.12.2023 Echocardiogram LVEF 15-20% right ventricle with oscillating thickening of the right atrial lead consistent with possible fibrotic stranding versus thrombus, moderate MR, moderate TR with akinetic anterior-septal wall. Paroxysmal atrial fibrillation on chronic anticoagulation with Eliquis History of major bleed with Xarelto in 2016 secondary to esophageal AV malformation Hyperlipidemia Hypothyroidism CKD stage IIIB Diabetes mellitus type 2 Obstructive sleep apnea Hypertension Plan: At this point we have a 79-year-old male presented for evaluation of perioral and jaw pain that started several days back lasting approximately 30 minutes and alleviated with rest. He also reports shortness of breath with little exertion and lower extremity edema. Troponin initially was 118 but this morning we were [place] [address]. Twelve lead EKG demonstrated a paced rhythm with questionable atrial fibrillation or atrial flutter. He has a history of atrial fibrillation and low ejection fraction 15-20% on echocardiogram in 2023. Currently the patient has no complaints. He is NPO, we will obtain a stat troponin. Further recommendations as we continue to evaluate the patient. ATTESTATION BY PHYSICIAN I have seen and examined the patient. I reviewed the documentation, medical decision making, and treatment plan as noted by the mid-level provider above. I agree with the findings and plan of care. MARIO PICKETT MD, [facility] Jul 04, 2024 08:28 MARIO PICKETT MD Jul 04, 2024 10:52
[2024-07-04] MEDS: SPIRONOLACTONE 25 MG TAB PO SCH (08:54)
[2024-07-04] MEDS: ASPIRIN 81 MG EC TAB PO SCH (08:54)
[2024-07-04] MEDS: APIXaban 5 MG TABLET PO SCH (08:55)
[2024-07-04] MEDS: SACUBITRIL/VALSARTAN 1 EACH TABLET PO SCH (08:55)
[2024-07-04] MEDS: metOPROLol sucCINATE 50 MG TAB.SR.24H PO SCH (08:56)
[2024-07-04] MEDS: [UNRECOGNIZED DRUG - MIXTURE] PO SCH (08:57)
[2024-07-04] MEDS: MAGNESIUM TABLET PO SCH (08:57)
[2024-07-04] MEDS ORDERED: 0.9% NACL 500ML IV.SOLN 500 ML IV SCH (11:00)
--- NOTE | 2024-07-04 11:43 | PN ---
[facility] PROGRESS NOTE Date of Service: Jul 04, 2024 Time of Service: 11:39 SUBJECTIVE: This is a 79-year-old male with past medical history of hypertension, hypothyroidism, atrial fibrillation, CHF with AICD, hyperlipidemia, BPH and diabetes who was brought by ambulance to the ED for complaints of chest pain and nausea which started 3 days ago. As per patient he was carrying groceries and was dropped off by the bus and he had to walk 300 yards to his house. Upon arrival to his house patient was short of breath but he managed to cook his food and eat his meal. Patient stated he took a nap for 2 hours he said and when he woke up he was still having shortness of breath and jaw pain as well so he called his relative who is a nurse practitioner and instructed him to go to the ER ,thus prompted this admission. Upon arrival to ER patient was not having chest pain but continued to be short of breath and he requested for oxygen. Seen and examined patient in the ER awake,alert and coherent on oxygen supplementation. Patient denied any chest pain,palpitation,nausea,vomiting,cough and shortness of breath. In the ER latest vital signs temperature 98.1, heart rate 85, blood pressure 119/73, saturation 97% on room air. In the ER Labs: Hemoglobin 13, hematocrit 42, platelet count 145. Sodium 140, potassium 4.8, chloride 106, BUN 29, creatinine 2.4, GFR 27, glucose 200 troponin 118, BNP 1580. Chest x-ray result revealed small left pleural effusion subjacent passive atelectasis. EKG result revealed AFib/a flutter and ventricular paced rhythm heart rate 74. While in the ER patient received furosemide 20 mg IV and aspirin 325 mg p.o. Patient was admitted for further evaluation and medical management 07/04 patient is seen and examined at bedside, alert oriented x3, hemodynamically stable, following commands, denied chest pain, no shortness shortness for breath, no nausea, no vomiting, no abdominal discomfort. REVIEW OF SYSTEMS CONSTITUTIONAL: Denies fevers, chills, or night sweats. No unintentional weight loss reported. NEUROLOGICAL: Denies headache, amaurosis fugax, motor weakness, sensory deficit, vertigo/spinning sensation, gait abnormalities, or tremors. ENT: No hearing loss, otalgia, otorrhea, rhinitis, rhinorrhea, hoarseness, or sore throat. CARDIOVASCULAR: Denies any exertional angina, dyspnea on exertion, orthopnea, paroxysmal nocturnal dyspnea, palpitations, life-threatening arrhythmias, claudication. PULMONARY: Complaints of shortness of breaths Denies cough, phlegm/sputum, hemoptysis, pleuritic chest pain. SLEEP: Denies morning headaches, daytime somnolence or napping. Denies di fficulty falling asleep, staying asleep, waking from sleep. Denies knowledge of snoring. GASTROINTESTINAL: Denies any type of dysphagia to either liquids or solids. Denies nausea, vomiting, pyrosis, early satiety, abdominal pain, diarrhea, constipation, or changes in stool consistency or caliber. Denies coffee-ground emesis, hematemesis, hematochezia, or melanotic stools. GENITOURINARY: Denies frequency, urgency, nocturia, hematuria or incontinence (Storage/Irritative symptoms.) Low urinary stream, straining to void, urinary intermittency or hesitancy, splitting of the voiding stream, terminal dribbling. ENDOCRINOLOGIC: Denies polyuria, polydipsia, polyphagia or heat/cold intolerances. HEMATOLOGIC: Denies thrombophilia/previous clots, or coagulopathy/bleeding disorders. ONCOLOGIC: Denies personal history of malignancy. DERMATOLOGIC: Denies rashes or pruritus. PSYCHIATRIC: Denies any suicidal or homicidal ideation. Denies hallucinations. PHYSICAL EXAM GENERAL APPEARANCE: The patient is awake, alert, and oriented, in no acute cardiopulmonary distress. NEUROLOGICAL: Cranial nerves II-XII grossly intact. Motor is 5/5 in bilateral upper and lower extremities proximal to distal. No sensory deficits. HEENT: Face is symmetric. Pupils are equal and reactive. Extraocular movements are intact. NECK: Supple. No JVD. No thyromegaly. No submental, submandibular, pre- /postauricular, occipital or supraclavicular lymphadenopathy. CHEST: Normal chest expansion. No Telemetry. LUNGS: Absence of any rales, rhonchi or any wheezing. CARDIOVASCULAR: Regular. S1 and S2 normal. No appreciable rubs, murmurs or gallops. ABDOMEN: Soft, nontender, and nondistended. There is no rebound, voluntary guarding, or rigidity. : Deferred. No Solo. EXTREMITIES: Non-edematous and not cyanotic. No clubbing. Good capillary refill. SKIN: No skin breakdown. Vital Signs (last 8hr) Date Time Temp Pulse Resp B/P (MAP) Pulse Ox O2 Delivery O2 Flow Rate FiO2 07/04/24 09:00 70 16 116/81 97 Room Air 07/04/24 08:00 98 Room Air* 0 21 07/04/24 08:00 68 22 114/66 97 Room Air 07/04/24 07:00 98.4 64 17 98/67 96 Room Air 07/04/24 04:00 74 29 122/57 97 LABS: Laboratory: Test 07/04/24 11:25 07/04/24 08:39 07/04/24 04:29 07/03/24 20:06 Range/Units Whole Blood Glucose 78 # 70-110 MG/DL Troponin I High Sensitivity 904 *H 4-75 ng/L White Blood Count 13.3 #H 4.8-10.8 K/uL Red Blood Count 3.76 L 4.50-6.20 MIL/uL Hemoglobin 11.4 L 14.0-18.0 g/dL Hematocrit 34.8 L 42-54 % Mean Corpuscular Volume 92.6 79-99 fL Mean Corpuscular Hemoglobin 30.3 27.0-33.0 pg Mean Corpuscular Hemoglobin Concent 32.8 32.0-36.0 g/dL Red Cell Distribution Width 13.4 11.0-15.5 % Platelet Count 280 # 130-400 K/uL Mean Platelet Volume 10.9 H 7.5-10.5 fL Immature Granulocyte % (Auto) 0.8 0-1 % Neutrophils (%) (Auto) 79.2 H 40.0-77.0 % Lymphocytes (%) (Auto) 11.0 L 21.0-51.0 % Monocytes (%) (Auto) 8.2 3.0-13.0 % Eosinophils (%) (Auto) 0.5 0.0-8.0 % Basophils (%) (Auto) 0.3 0.0-5.0 % Neutrophils # (Auto) 10.6 H 1.8-7.7 K/uL Lymphocytes # (Auto) 1.5 1.0-4.8 K/uL Monocytes # (Auto) 1.1 H 0.1-1.0 K/uL Eosinophils # (Auto) 0.07 0.00-0.70 K/uL Basophils # (Auto) 0.04 0.00-0.20 K/uL Absolute Immature Granulocyte (auto 0.11 0-1 K/uL Nucleated Red Blood Cells 0.0 0.0-0.19 % Sodium Level 141 136-145 mmol/L Potassium Level 4.0 3.5-5.1 mmol/L Chloride Level 103 101-111 mmol/L Carbon Dioxide Level 24 21-32 mmol/L Blood Urea Nitrogen 32 H 7-18 mg/dL Creatinine 1.5 H 0.5-1.3 mg/dL Glomerular Filtration Rate Calc 48 >90 mL/min Random Glucose 102 70-105 mg/dL Hemoglobin A1c 6.4 H 4.0-6.0 % Estimated Average Glucose (eAG) 137 H 70-126 mg/dL Total Calcium 9.0 8.5-10.1 mg/dL Magnesium Level 1.80 1.80-2.40 mg/dL Iron Level 39 L 65-175 mcg/dL Total Iron Binding Capacity 373 250-450 mcg/dL Percent Iron Saturation 10.4 L 30-44 % Total Bilirubin 0.3 0.2-1.0 mg/dL Aspartate Amino Transf (AST/SGOT) 242 H 10-37 U/L Alanine Aminotransferase (ALT/SGPT) 50 12-78 U/L Alkaline Phosphatase 113 50-136 U/L B-Type Natriuretic Peptide 201 H 0-100 pg/mL Total Protein 6.4 6.0-8.3 g/dL Albumin 2.8 L 3.5-5.0 g/dL Triglycerides Level 119 30-200 mg/dL Cholesterol Level 189 <200 mg/dL LDL Cholesterol 125 H 0-99 mg/dL HDL Cholesterol 46 29-71 mg/dL White Cell Morphology Comment See comments Prothrombin Time 12.5 H 9.6-11.6 SEC Prothromb Time International Ratio 1.20 H 0.85-1.15 Activated Partial Thromboplast Time 34.7 26.3-35.5 SEC Total Creatine Kinase 70 21-232 U/L Test 07/03/24 01:28 Range/Units Urine Color LIGHT-YELLOW YELLOW Urine Appearance CLEAR CLEAR Urine pH 5.5 5.0-8.0 Urine Specific [place] 1.008 1.001-1.031 Urine Protein NEGATIVE NEGATIVE mg/dL Urine Glucose (UA) NEGATIVE NEGATIVE mg/dL Urine Ketones NEGATIVE NEGATIVE mg/dL Urine Occult Blood +- (TRACE) H NEGATIVE Urine Nitrate NEGATIVE NEGATIVE Urine Bilirubin NEGATIVE NEGATIVE mg/dL Urine Urobilinogen 0.2 0.2-1.0 mg/dL Urine Leukocyte Esterase NEGATIVE NEGATIVE Beth/uL Urine RBC 2-5 H 0-1 /HPF Urine WBC 0-1 0-1 /HPF Urine Bacteria RARE None Seen /HPF Urine Opiates Screen NEGATIVE NEGATIVE Urine Barbiturates Screen NEGATIVE NEGATIVE Urine Phencyclidine Screen NEGATIVE NEGATIVE Urine Amphetamines Screen NEGATIVE NEGATIVE Urine Benzodiazepines Screen NEGATIVE NEGATIVE Urine Cocaine Screen NEGATIVE NEGATIVE Urine Marijuana (THC) Screen NEGATIVE NEGATIVE Current Medications Medications (Trade) Dose Ordered Sig/Frank Route PRN Reason Start Time Stop Time Status Last Admin Dose Admin Acetaminophen (TYLenol 325MG TAB) 650 mg Q4H PRN PO MILD PAIN (1-3) 07/03/24 21:30 08/02/24 21:29 Acetaminophen (TYLenol 325MG TAB) 650 mg Q6H PRN PO TEMPERATURE GREATER THAN 101.5 07/03/24 21:30 08/02/24 21:29 Apixaban (EliquIS) 5 mg BID PO 07/04/24 09:00 07/04/24 10:49 DC 07/04/24 08:55 5 MG Aspirin (Aspirin 325mg Tab) 325 mg ONCE PO 07/03/24 20:30 07/03/24 23:59 DC 07/03/24 20:17 325 MG Aspirin (Aspirin 81mg Ec Tab) 81 mg DAILY PO 07/04/24 09:00 08/03/24 08:59 07/04/24 08:54 81 MG Atorvastatin Calcium (LIPItor 40MG) 80 mg HS PO 07/04/24 21:00 08/03/24 20:59 Dextrose (D50w) 50 ml AD PRN IV HYPOGLYCEMIA PROTOCOL 07/03/24 21:30 08/02/24 21:29 EZETIMIBE (Zetia) 10 mg HS PO 07/04/24 21:00 08/03/24 20:59 Famotidine (Pepcid 20mg Tab) 20 mg DAILY PO 07/03/24 22:00 08/02/24 21:59 07/04/24 08:55 20 MG Furosemide (LASix 20MG VIAL) 20 mg BID IV 07/03/24 22:00 08/02/24 21:59 07/04/24 08:53 20 MG Glucagon (Glucagon 1mg Kit) 1 mg AD PRN IM HYPOGLYCEMIA PROTOCOL 07/03/24 21:30 08/02/24 21:29 Home Med (Home Medication) DAILY PO 07/04/24 09:00 08/03/24 08:59 Home Med (Home Medication) DAILY PO 07/04/24 09:00 08/03/24 08:59 Insulin Human Regular (humuLIN R 100 UNIT/ML 3ML) INSULIN SLIDING SCAL... ACHS SQ 07/03/24 22:00 08/02/24 21:59 Levothyroxine Sodium (SYNTHroid 100MCG TAB) 100 mcg SYN PO 07/04/24 06:30 08/03/24 06:29 07/04/24 06:23 100 MCG Metoprolol Succinate (TopROL XL) 50 mg DAILY PO 07/04/24 09:00 08/03/24 08:59 07/04/24 08:56 50 MG Nitroglycerin (Nitrostat) 0.4 mg AD PRN SL CHEST PAIN 07/03/24 21:30 08/02/24 21:29 Ondansetron HCl (zoFRAN 4MG INJ) 4 mg Q6H PRN IV NAUSEA/VOMITING 07/03/24 21:30 08/02/24 21:29 Sacubitril/ Valsartan (Entresto 49 Mg-51 Mg Tablet) 1 each BID PO 07/04/24 09:00 08/03/24 08:59 07/04/24 08:55 1 EACH Sodium Chloride 500 ml @ 0 mls/hr Q0M IV 07/04/24 11:00 08/03/24 10:59 Spironolactone (Aldactone 25mg) 12.5 mg DAILY PO 07/04/24 09:00 08/03/24 08:59 07/04/24 08:54 12.5 MG DIAGNOSTICS / RADIOLOGY: [ ] ASSESSMENT: Elevated troponin,jaw pain R/O ACS POA Acute on chronic heart failure POA Acute on chronic kidney disease POA Uncontrolled diabetes POA AICD status POA Atrial fibrillation/atrial flutter POA Hypertension POA Hyperlipidemia POA Hypothyroidism POA BPH POA PLAN: Patient remains admitted to the intensive care unit Continue the patient on awake overnight monitor Patient evaluated by contract attorney. Patient's troponin initially 118, [place] [address], 12 lead EKG revealed a paced rhythm questionable atrial fibrillation or atrial flutter. Patient with a echocardiogram done in 2023 with a ejection fraction 15-20%. Plan for possible left heart catheterization tomorrow. Nephrology consultation requested, follow input and recommendations. Continue to monitor closely creatinine a.m.. NEURO: Minimize central acting medications as possible. Fall Precautions. Well lighted room through the day and minimize interruptions through the night to prevent acute delirium. PULMONARY: Supplemental 02 as needed BiPAP as necessary, for respiratory distress Titrate Fio2 to keep Spo2 > or = 90% DuoNebs and CPT as needed IS hourly while awake for pulmonary hygiene prn Out of bed to chair as tolerated Maintain aspiration precautions at all times CARDIOVASCULAR: Follow hemodynamics. Vital signs per facility protocol GI & NUTRITION: Continue nutritional support Aspirations precautions Prokinetic agents and laxatives as needed KIDNEYS & ELECTROLYTES: Strict monitoring of intake and output Daily weights Avoid nephrotoxic agents Monitor electrolytes and replace as needed Goal urine output of 30mL/hr or 0.5mL/kg/hr Medications to be dosed according to renal function. Avoid contrast if possible ENDOCRINE: Maintain blood glucose between 100-180 at all times. Insulin sliding scale for blood glucose management Hypoglycemia and hyperglycemia protocol in place INFECTIOUS DISEASE: Trend temperature, WBC and procalcitonin level Follow cultures, deescalate antibiotics as soon as possible. Panculture if new onset fever HEMATOLOGY & COAGULATION: Monitor H&H. Keep Hgb > 7 Transfuse 1 unit of PRBC for Hgb < 7 Transfuse 1 pack of platelets of platelets < 20, 000 Watch for any signs and symptoms of bleeding SKIN: Pressure ulcer prevention per facility protocol Specialty mattress as needed ORTHO/REHAB Continue PT/OT PRN: MEDICATIONS Tylenol 650 mg po every 4 hrs for fever zofran 4 mg IV every 6 hrs for n/v Hydralazine 5 mg IV every 4 hrs systolic pressure > 160 bowel regiment: lactulose 20 gm PO BID PRN constipation Supportive measures: Continue GI and DVT prophylaxis Disposition: Pending improvement in clinical condition All questions answered time spent: > 35 min GISSEL MOELLER MD Jul 04, 2024 11:43
[2024-07-04 12:01] LABS: INR 1.19 (0.85-1.15); PROTHROMBIN TIME 12.4 SEC (9.6-11.6)
[2024-07-04 12:03] LABS: PARTIAL THROMBOPLASTIN TIME 34.7 SEC (26.3-35.5)
[2024-07-04] MEDS ORDERED: COMPOUND IV MISC 1 EACH IVSOLN MISC PRN (13:00)
--- NOTE | 2024-07-04 13:10 | CONS ---
REFERRING PHYSICIAN: Dr. Arguello. REASON FOR CONSULTATION: Renal failure. HISTORY OF PRESENT ILLNESS: A 79-year-old male with a history of hypertension and known cardiomyopathy. The patient is status post AICD placement. The patient presented to the hospital with increasing shortness of breath and orthopnea. In the Emergency Room, the patient found to have significant volume overload and was started on the diuretics. Urine output has improved and the patient is being seen in consultation for all the above. Laboratory values do reveal an elevated BUN and creatinine. PAST MEDICAL HISTORY: Diabetes mellitus, hypertension, cardiomyopathy, BPH. PAST SURGICAL HISTORY: AICD, coronary catheterization. SOCIAL HISTORY: She lives independently. There is no active tobacco use. FAMILY HISTORY: No renal disease in the family. ALLERGIES: HE HAS AN ALLERGY TO SULFA. MEDICATIONS: All noted. REVIEW OF SYSTEMS: GENERAL: He is feeling somewhat improved. HEENT: No change in vision. No change in hearing, no nasal discharge, no sore throat. CARDIOVASCULAR: There is no current chest pain or palpitations. PULMONARY: As described above. GASTROINTESTINAL: The patient is tolerating a diet. MUSCULOSKELETAL: Complains of weakness. NEUROLOGIC: No history of seizures or focal deficits. PSYCHIATRIC: No history of hallucinations or psychosis. ENDOCRINE: Diabetes mellitus. No history of thyroid disease. HEME: There is no history of anemia or malignancy. PHYSICAL EXAMINATION: VITAL SIGNS: Blood pressure 116/81, pulse 60s. He is afebrile. GENERAL: He is a chronically ill male, elderly, lying in bed on the medical floor. HEENT: Head is atraumatic. Pupils equal, roving to light. Oropharynx is without exudate. Nares clear. NECK: There is no JVP. There is no thyromegaly, no mass. CARDIOVASCULAR: Regular. There is no S3, S4 gallop. LUNGS: Coarse with equal thoracic movement. ABDOMEN: Soft, nondistended, nontender. EXTREMITIES: Reveal no clubbing, no cyanosis. NEUROLOGICAL: He is awake. He is alert. He is oriented. SKIN: Reveals no rash or nodules. BACK: There is no CVA tenderness, no back deformities. LABORATORY DATA: Sodium 141, potassium is 4, BUN 32, creatinine 1.5. Hemoglobin A1c 6. Iron levels are noted. Troponin is 900, hemoglobin 11, hematocrit 34, white cell count is 13,000. Chest x-ray is consistent with pulmonary vascular congestion. IMPRESSION: 1. Acute on chronic renal failure. 2. Congestive heart failure. 3. Known cardiomyopathy. 4. Anemia. 5. Hypertension. PLAN: The patient does have significant renal dysfunction. The patient has been started on Entresto. For his cardiomyopathy, we will continue to monitor his hemodynamics closely. The patient's chemistries can all be rechecked in the a.m. We will obtain a renal ultrasound for completeness. The patient does have significant anemia and the patient will be given a 1 time dose of Venofer. All labs can be repeated in the a.m. We will continue to follow closely the patient with multiple questions, all of which were answered. TID: [id number] RECEIPT: [id number]
--- NOTE | 2024-07-04 14:02 | HMCIMG ---
US RENAL SONOGRAM HISTORY: Renal failure COMPARISON: None TECHNIQUE: Renal and bladder ultrasound study was performed. FINDINGS: The right kidney measures 9.1 x 5.7 x 3.3 cm. The left kidney measures 9.4 x 5.5 x 4 point cm. No evidence of hydronephrosis is seen of either kidney. There is a right renal mass near the midpole measuring 3 x 2.6 x 3.3 cm suspicious for neoplastic process. CT may be performed for complete evaluation. There is left upper pole renal cyst measuring 8.5 x 6.2 x 5.8 cm. Bladder is poorly distended. IMPRESSION: 1. No hydronephrosis is seen. There is a right renal mass near the midpole measuring 3 x 2.6 x 3.3 cm suspicious for neoplastic process. CT may be performed for complete evaluation. There is left upper pole renal cyst measuring 8.5 x 6.2 x 5.8 cm.
--- NOTE | 2024-07-04 16:13 | NUR ---
DCP: home will possibly need help with transportation SW met with pt, he stated that he currently resides in a trailer by himself. Pt. reports being able to complete ADLs independently. Pt. did not report having home health services at this time. Pt did not report any housing or food insecurities. Pt. stated that he used to drive himself to the places that he needs to go however his vehicle broke down and has had to use the bus and/or Uber to get around. He states that at discharge he may need help with getting a ride back to his home. Pt did not report any use or need for DME. Pt. reported that his PCP is Dr. Siddhartha Ragsdale, he has not seen him in 3-4 months. Pt. uses [facility] in [place] for RX as needed. Addendum: 07/04/24 at 1628 by CAROLNIE SIMPSON SS Amended: Links added.
--- NOTE | 2024-07-04 16:47 | NUR ---
CALLED DR. Anthony GONZALEZ, NEPHROLOGY TO INFORM OF MASS SEEN ON PATIENT ULTRASOUND. NO NEW ORDERS GIVEN. MD WILL SPEAK WITH PATIENT IN THE MORNING.
[2024-07-04] MEDS: MAGNESIUM 2GM PREMIX 50ML 50 ML IV PRN (18:04)
[2024-07-04] MEDS: EZETIMIBE 10 MG TAB PO SCH (20:01)
[2024-07-04] MEDS: atorVAStatin 40 MG TABLET PO SCH (20:01)
[2024-07-04] MEDS: acetaMINOPHEN 325 MG TAB PO PRN (20:04)
[2024-07-04] MEDS: IRON sUCROse COMPLEX 300 MG in 0.9% NACL 250ML 250 ML IV ONE (20:30)
[2024-07-05] VITALS (26 sets, daily range): BP systolic 108–135; BP diastolic 44–80; PULSE 70–83; RESP 12–47; TEMP 97.6–98.7; O2SAT 92–97
[2024-07-05 05:02] LABS: HEMATOCRIT 43.1 % (42-54); MEAN CORPUSCULAR HEMOGLOBIN 33.5 pg (27.0-33.0); MEAN CORPUSCULAR VOLUME 104.6 fL (79-99); RED BLOOD CELL COUNT(AUTO) 4.12 MIL/uL (4.50-6.20); RED CELL DISTRIBUTION WIDTH 16.6 % (11.0-15.5); WHITE BLOOD COUNT (AUTO) 6.7 K/uL (4.8-10.8)
[2024-07-05 05:41] LABS: ALBUMIN 3.1 g/dL (3.5-5.0); CREATININE 2.7 mg/dL (0.5-1.3); MAGNESIUM 2.4 mg/dL (1.80-2.40); POTASSIUM 4.7 mmol/L (3.5-5.1); TOTAL PROTEIN, SERUM 6.8 g/dL (6.0-8.3)
--- NOTE | 2024-07-05 09:51 | PN ---
FOLLOWUP PROGRESS NOTE SUBJECTIVE: A 79-year-old male with a history of known coronary artery disease. The patient with history of known cardiomyopathy, initially presented with congestive heart failure. The patient was started on the diuretics. The patient's creatinine did increase overnight and the patient is being seen for all the above. The patient's heart cath has been placed on hold. The patient did have a renal ultrasound that did reveal a renal mass and he is being seen as a followup visit for all of the above. REVIEW OF SYSTEMS: GENERAL: He is feeling improved since admission. HEENT: No change in vision. No change in hearing. CARDIOVASCULAR: There is no current chest pain or palpitations. PULMONARY: His shortness of breath has improved. GASTROINTESTINAL: He is tolerating a diet. MUSCULOSKELETAL: Complains of weakness. PHYSICAL EXAMINATION: VITAL SIGNS: Blood pressure is 135/77, pulse 70s, he is afebrile. GENERAL: He is a chronically ill male, elderly, lying in bed on the medical floor. HEENT: Head is atraumatic. Pupils are equal, roving to light. Oropharynx is without exudate. Nares clear. NECK: There is no JVP. There is no thyromegaly, no mass. CARDIOVASCULAR: Regular. There is no S3, S4 or gallop. LUNGS: Coarse with equal thoracic movement. ABDOMEN: Soft, nondistended, nontender. EXTREMITIES: Reveal no clubbing, no cyanosis. NEUROLOGIC: He is awake. He is alert. He is oriented. LABORATORY DATA: Sodium 143, potassium 4.7, BUN 34, creatinine is 2.7. Hemoglobin 13, hematocrit 43. Renal ultrasound does reveal mass. IMPRESSION: * Acute on chronic renal failure. * Cardiomyopathy. * Renal mass. * Hypertension. PLAN: The patient's creatinine did rise overnight. We would recommend holding the patient's Lasix for now. We will also hold the spironolactone and Entresto until the creatinine stabilizes. The patient's heart cath be placed on hold. All labs can be repeated in the morning. The patient will be given a one-time dose of 500 mL of normal saline. The patient's renal ultrasound did reveal a renal mass. The patient eventually will need to have CT scan with IV contrast once creatinine is stabilized. The patient also eventually need to be seen by Urology. We will continue to follow closely. The patient with multiple questions, all of which were answered. TID: [id number] RECEIPT: [id number]
[2024-07-05] MEDS: 0.9% NACL 500ML IV.SOLN 500 ML IV SCH (10:25)
--- NOTE | 2024-07-05 10:54 | PN ---
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 He ruled in for a non ST segment elevation myocardial infarction with a rise of cardiac troponin from 118>>>[id number]. The patient relates that his discomfort lasted only approximately 30 minutes. His EKG on arrival demonstrates biventricular pacing in approximately 1-1.[address] depression in V2. His troponin trend suggest that troponin sample 3 was a lab error. He was scheduled for a left heart catheterization this morning but because of an abnormal creatinine the procedure has been rescheduled. Admission creatinine was 2.4, repeat 1.5, and repeat 2.7. He does have known stage IV chronic renal insufficiency. The procedure could be performed with very limited contrast if we confirm that renal function is stable. We will tentatively reschedule him for tomorrow. His chest x-ray demonstrates a left pleural effusion and chronic bilateral basilar infiltrates also present on chest x-ray August 2023. Physical Examination: GENERAL: No acute distress. HEAD: Normal with no signs of head trauma. EYES: PERRLA, EOMI, conjunctiva and sclera normal. NECK: Supple without JVD. There is no tenderness, lymphadenopathy, or masses. No thyromegaly. Normal carotid upstrokes without bruits. LUNGS: Clear breath sounds bilaterally. Diminished breath sounds at the bases. No wheezes, or rhonchi. HEART: Normal rate and rhythm. Normal S1 and S2 without murmurs, gallop or rub. VASC: Peripheral pulses +2 bilaterally. EXT: No clubbing, cyanosis or edema. NEURO: Awake, alert, and oriented x3. No focal neurological deficits noted. Laboratory: Hematology Labs: Test 07/05/24 04:13 07/04/24 04:29 07/03/24 20:06 Range/Units White Blood Count 6.7 # 4.8-10.8 K/uL Red Blood Count 4.12 L 4.50-6.20 MIL/uL Hemoglobin 13.8 #L 14.0-18.0 g/dL Hematocrit 43.1 # 42-54 % Mean Corpuscular Volume 104.6 H 79-99 fL Mean Corpuscular Hemoglobin 33.5 H 27.0-33.0 pg Mean Corpuscular Hemoglobin Concent 32.0 32.0-36.0 g/dL Red Cell Distribution Width 16.6 H 11.0-15.5 % Platelet Count 134 # 130-400 K/uL Mean Platelet Volume 12.1 H 7.5-10.5 fL Nucleated Red Blood Cells 0.0 0.0-0.19 % Immature Granulocyte % (Auto) 0.8 0-1 % Neutrophils (%) (Auto) 79.2 H 40.0-77.0 % Lymphocytes (%) (Auto) 11.0 L 21.0-51.0 % Monocytes (%) (Auto) 8.2 3.0-13.0 % Eosinophils (%) (Auto) 0.5 0.0-8.0 % Basophils (%) (Auto) 0.3 0.0-5.0 % Neutrophils # (Auto) 10.6 H 1.8-7.7 K/uL Lymphocytes # (Auto) 1.5 1.0-4.8 K/uL Monocytes # (Auto) 1.1 H 0.1-1.0 K/uL Eosinophils # (Auto) 0.07 0.00-0.70 K/uL Basophils # (Auto) 0.04 0.00-0.20 K/uL Absolute Immature Granulocyte (auto 0.11 0-1 K/uL White Cell Morphology Comment See comments Chemistry Labs: Test 07/05/24 06:25 07/05/24 04:13 07/04/24 08:39 07/04/24 04:29 Range/Units Whole Blood Glucose 103 70-110 MG/DL Sodium Level 143 136-145 mmol/L Potassium Level 4.7 3.5-5.1 mmol/L Chloride Level 105 101-111 mmol/L Carbon Dioxide Level 26 21-32 mmol/L Blood Urea Nitrogen 34 H 7-18 mg/dL Creatinine 2.7 H 0.5-1.3 mg/dL Glomerular Filtration Rate Calc 24 >90 mL/min Random Glucose 107 H 70-105 mg/dL Total Calcium 9.2 8.5-10.1 mg/dL Magnesium Level 2.40 1.80-2.40 mg/dL Total Bilirubin 1.0 # 0.2-1.0 mg/dL Aspartate Amino Transf (AST/SGOT) 25 10-37 U/L Alanine Aminotransferase (ALT/SGPT) 16 # 12-78 U/L Alkaline Phosphatase 129 50-136 U/L Total Protein 6.8 6.0-8.3 g/dL Albumin 3.1 L 3.5-5.0 g/dL Troponin I High Sensitivity 904 *H 4-75 ng/L Hemoglobin A1c 6.4 H 4.0-6.0 % Estimated Average Glucose (eAG) 137 H 70-126 mg/dL Iron Level 39 L 65-175 mcg/dL Total Iron Binding Capacity 373 250-450 mcg/dL Percent Iron Saturation 10.4 L 30-44 % B-Type Natriuretic Peptide 201 H 0-100 pg/mL Triglycerides Level 119 30-200 mg/dL Cholesterol Level 189 <200 mg/dL LDL Cholesterol 125 H 0-99 mg/dL HDL Cholesterol 46 29-71 mg/dL Test 07/03/24 20:06 Range/Units Total Creatine Kinase 70 21-232 U/L Coagulation Labs: Test 07/04/24 11:36 Range/Units Prothrombin Time 12.4 H 9.6-11.6 SEC Prothromb Time International Ratio 1.19 H 0.85-1.15 Activated Partial Thromboplast Time 34.7 26.3-35.5 SEC Diagnostics / Radiology: 2D echo 12/18/2023: Conclusion LVEF is 15-20% with grade 2 diastolic dysfunction. There is borderline to mild left ventricular hypertrophy. The right ventricle is moderately to severely dilated. Right ventricular systolic function is severely reduced. Device lead is seen on RA and RV There is a mobile density in the right atrium which appears to be attached to the device lead, consistent with thrombus, vegetation, or fibrous tissue. Trace aortic regurgitation. The mitral valve is mildly thickened. Mitral annular calcification is mild. Mitral regurgitation is moderate. There is moderate to severe tricuspid regurgitation. Right ventricular systolic pressure is estimated at 50-60 mmHg. There is mild to moderate pulmonic valvular regurgitation. IVC is dilated and collapses >50% with inspiration. Small pericardial effusion near the RA. Left pleural effusion. DICTATED BY: SOUTH CONSTANTINO MD DATE: 12/18/23 1452 Impression and Plan: Non STEMI: Troponin pattern 118>>>[id number]: Nonobstructive coronary artery disease by cardiac catheterization 09/08/2023 with 30% left main stenosis and 30% diffuse mid LAD stenosis at that time: -EKG demonstrated anterior ST depression -troponin pattern suggests an abnormal 3rd sample and this has been requested to be repeated from the lab. We will request one additional troponin -begin dual antiplatelet therapy with aspirin plus clopidogrel -plan left heart catheterization when renal function in a stable pattern with limited contrast, progression of LAD disease suspected Severe dilated, nonischemic cardiomyopathy with LVEF of 15-20% by 2D echo 2023 in by repeat 2D echo 12/18/2023: Moderate MR and moderate TR by 2D echocardiogram 12/18/2023: -the patient has been intolerant of Jardiance and Farxiga -the patient underwent ECHO optimization of his biventricular pacemaker 02/23/2024 -the patient may benefit from baptism of a normal sinus rhythm and we will consider direct current cardioversion if he reports compliance with his Eliquis History of permanent atrial fibrillation/flutter: -The patient is currently in an atrial flutter rhythm, and he may benefit from baptism of AV synchrony and the atrial kick -we will request Dr. Constantino consider D.C. Cardioversion Status post biventricular pacemaker/AICD with Medtronic Claria MRI CANDY BUTCHER-D 09/08/[address] [place] Constantino: Status post echo optimization of biventricular pacemaker 02/23/2024: Comorbidities: Long-term anticoagulation with Eliquis Hyperlipidemia Hypothyroidism Stage IV chronic renal insufficiency Type 2 diabetes with renal and circulatory manifestations Obstructive sleep apnea Fibrotic versus thrombotic thickening of the right atrial lead by 2D echo 12/18/2023 Moderate MR and moderate TR by 2D echo 12/18/2023 AYAAN GONZALEZ MD Jul 05, 2024 10:54
[2024-07-05] MEDS: DOPamine HCL 400 MG/D5%-WATER 250 ML IV SCH (11:00)
[2024-07-05] MEDS: cloPIDOgrel 300MG TAB PO ONE (11:43)
--- NOTE | 2024-07-05 12:45 | PN ---
[facility] PROGRESS NOTE Date of Service: Jul 05, 2024 Time of Service: 12:43 SUBJECTIVE: This is a 79-year-old male with past medical history of hypertension, hypothyroidism, atrial fibrillation, CHF with AICD, hyperlipidemia, BPH and diabetes who was brought by ambulance to the ED for complaints of chest pain and nausea which started 3 days ago. As per patient he was carrying groceries and was dropped off by the bus and he had to walk 300 yards to his house. Upon arrival to his house patient was short of breath but he managed to cook his food and eat his meal. Patient stated he took a nap for 2 hours he said and when he woke up he was still having shortness of breath and jaw pain as well so he called his relative who is a nurse practitioner and instructed him to go to the ER ,thus prompted this admission. Upon arrival to ER patient was not having chest pain but continued to be short of breath and he requested for oxygen. Seen and examined patient in the ER awake,alert and coherent on oxygen supplementation. Patient denied any chest pain,palpitation,nausea,vomiting,cough and shortness of breath. In the ER latest vital signs temperature 98.1, heart rate 85, blood pressure 119/73, saturation 97% on room air. In the ER Labs: Hemoglobin 13, hematocrit 42, platelet count 145. Sodium 140, potassium 4.8, chloride 106, BUN 29, creatinine 2.4, GFR 27, glucose 200 troponin 118, BNP 1580. Chest x-ray result revealed small left pleural effusion subjacent passive atelectasis. EKG result revealed AFib/a flutter and ventricular paced rhythm heart rate 74. While in the ER patient received furosemide 20 mg IV and aspirin 325 mg p.o. Patient was admitted for further evaluation and medical management 07/04 patient is seen and examined at bedside, alert oriented x3, hemodynamically stable, following commands, denied chest pain, no shortness shortness for breath, no nausea, no vomiting, no abdominal discomfort. 07/05 patient is seen and examined at bedside, case discussed with the RN, no acute events overnight, the patient had episode of loose stool this morning, he is requesting Imodium, BP 135/77, afebrile, saturating normal on room air, the patient is alert oriented x3, hemodynamically stable, no chest pain, shortness shortness for breath, no nausea, no vomiting. Creatinine today at 2.7 REVIEW OF SYSTEMS CONSTITUTIONAL: Denies fevers, chills, or night sweats. No unintentional weight loss reported. NEUROLOGICAL: Denies headache, amaurosis fugax, motor weakness, sensory deficit, vertigo/spinning sensation, gait abnormalities, or tremors. ENT: No hearing loss, otalgia, otorrhea, rhinitis, rhinorrhea, hoarseness, or sore throat. CARDIOVASCULAR: Denies any exertional angina, dyspnea on exertion, orthopnea, paroxysmal nocturnal dyspnea, palpitations, life-threatening arrhythmias, claudication. PULMONARY: Complaints of shortness of breaths Denies cough, phlegm/sputum, hemoptysis, pleuritic chest pain. SLEEP: Denies morning headaches, daytime somnolence or napping. Denies difficulty falling asleep, staying asleep, waking from sleep. Denies knowledge of snoring. GASTROINTESTINAL: Denies any type of dysphagia to either liquids or solids. Denies nausea, vomiting, pyrosis, early satiety, abdominal pain, diarrhea, constipation, or changes in stool consistency or caliber. Denies coffee-ground emesis, hematemesis, hematochezia, or melanotic stools. GENITOURINARY: Denies frequency, urgency, nocturia, hematuria or incontinence ( Storage/Irritative symptoms.) Low urinary stream, straining to void, urinary intermittency or hesitancy, splitting of the voiding stream, terminal dribbling. ENDOCRINOLOGIC: Denies polyuria, polydipsia, polyphagia or heat/cold intolerances. HEMATOLOGIC: Denies thrombophilia/previous clots, or coagulopathy/bleeding disorders. ONCOLOGIC: Denies personal history of malignancy. DERMATOLOGIC: Denies rashes or pruritus. PSYCHIATRIC: Denies any suicidal or homicidal ideation. Denies hallucinations. PHYSICAL EXAM GENERAL APPEARANCE: The patient is awake, alert, and oriented, in no acute cardiopulmonary distress. NEUROLOGICAL: Cranial nerves II-XII grossly intact. Motor is 5/5 in bilateral upper and lower extremities proximal to distal. No sensory deficits. HEENT: Face is symmetric. Pupils are equal and reactive. Extraocular movements are intact. NECK: Supple. No JVD. No thyromegaly. No submental, submandibular, pre- /postauricular, occipital or supraclavicular lymphadenopathy. CHEST: Normal chest expansion. No Telemetry. LUNGS: Absence of any rales, rhonchi or any wheezing. CARDIOVASCULAR: Regular. S1 and S2 normal. No appreciable rubs, murmurs or gallops. ABDOMEN: Soft, nontender, and nondistended. There is no rebound, voluntary guarding, or rigidity. : Deferred. No Solo. EXTREMITIES: Non-edematous and not cyanotic. No clubbing. Good capillary refill. SKIN: No skin breakdown. Vital Signs (last 8hr) Date Time Temp Pulse Resp B/P (MAP) Pulse Ox O2 Delivery O2 Flow Rate FiO2 07/05/24 07:35 97 Room Air* 0 21 07/05/24 07:33 97.5 07/05/24 04:45 98.2 70 16 135/77 99 LABS: Laboratory: Test 07/05/24 11:38 07/05/24 11:00 07/05/24 04:13 07/04/24 11:36 Range/Units Whole Blood Glucose 126 H 70-110 MG/DL Troponin I High Sensitivity 458 *H 4-75 ng/L White Blood Count 6.7 # 4.8-10.8 K/uL Red Blood Count 4.12 L 4.50-6.20 MIL/uL Hemoglobin 13.8 #L 14.0-18.0 g/dL Hematocrit 43.1 # 42-54 % Mean Corpuscular Volume 104.6 H 79-99 fL Mean Corpuscular Hemoglobin 33.5 H 27.0-33.0 pg Mean Corpuscular Hemoglobin Concent 32.0 32.0-36.0 g/dL Red Cell Distribution Width 16.6 H 11.0-15.5 % Platelet Count 134 # 130-400 K/uL Mean Platelet Volume 12.1 H 7.5-10.5 fL Nucleated Red Blood Cells 0.0 0.0-0.19 % Sodium Level 143 136-145 mmol/L Potassium Level 4.7 3.5-5.1 mmol/L Chloride Level 105 101-111 mmol/L Carbon Dioxide Level 26 21-32 mmol/L Blood Urea Nitrogen 34 H 7-18 mg/dL Creatinine 2.7 H 0.5-1.3 mg/dL Glomerular Filtration Rate Calc 24 >90 mL/min Random Glucose 107 H 70-105 mg/dL Total Calcium 9.2 8.5-10.1 mg/dL Magnesium Level 2.40 1.80-2.40 mg/dL Total Bilirubin 1.0 # 0.2-1.0 mg/dL Aspartate Amino Transf (AST/SGOT) 25 10-37 U/L Alanine Aminotransferase (ALT/SGPT) 16 # 12-78 U/L Alkaline Phosphatase 129 50-136 U/L Total Protein 6.8 6.0-8.3 g/dL Albumin 3.1 L 3.5-5.0 g/dL Prothrombin Time 12.4 H 9.6-11.6 SEC Prothromb Time International Ratio 1.19 H 0.85-1.15 Activated Partial Thromboplast Time 34.7 26.3-35.5 SEC Test 07/04/24 04:29 07/03/24 20:06 Range/Units Immature Granulocyte % (Auto) 0.8 0-1 % Neutrophils (%) (Auto) 79.2 H 40.0-77.0 % Lymphocytes (%) (Auto) 11.0 L 21.0-51.0 % Monocytes (%) (Auto) 8.2 3.0-13.0 % Eosinophils (%) (Auto) 0.5 0.0-8.0 % Basophils (%) (Auto) 0.3 0.0-5.0 % Neutrophils # (Auto) 10.6 H 1.8-7.7 K/uL Lymphocytes # (Auto) 1.5 1.0-4.8 K/uL Monocytes # (Auto) 1.1 H 0.1-1.0 K/uL Eosinophils # (Auto) 0.07 0.00-0.70 K/uL Basophils # (Auto) 0.04 0.00-0.20 K/uL Absolute Immature Granulocyte (auto 0.11 0-1 K/uL Hemoglobin A1c 6.4 H 4.0-6.0 % Estimated Average Glucose (eAG) 137 H 70-126 mg/dL Iron Level 39 L 65-175 mcg/dL Total Iron Binding Capacity 373 250-450 mcg/dL Percent Iron Saturation 10.4 L 30-44 % B-Type Natriuretic Peptide 201 H 0-100 pg/mL Triglycerides Level 119 30-200 mg/dL Cholesterol Level 189 <200 mg/dL LDL Cholesterol 125 H 0-99 mg/dL HDL Cholesterol 46 29-71 mg/dL White Cell Morphology Comment See comments Total Creatine Kinase 70 21-232 U/L Current Medications Medications (Trade) Dose Ordered Sig/Frank Route PRN Reason Start Time Stop Time Status Last Admin Dose Admin Acetaminophen (TYLenol 325MG TAB) 650 mg Q4H PRN PO MILD PAIN (1-3) 07/03/24 21:30 08/02/24 21:29 Acetaminophen (TYLenol 325MG TAB) 650 mg Q6H PRN PO TEMPERATURE GREATER THAN 101.5 07/03/24 21:30 08/02/24 21:29 07/04/24 20:04 650 MG Apixaban (EliquIS) 5 mg BID PO 07/04/24 09:00 07/04/24 10:49 DC 07/04/24 08:55 5 MG Aspirin (Aspirin 325mg Tab) 325 mg ONCE PO 07/03/24 20:30 07/03/24 23:59 DC 07/03/24 20:17 325 MG Aspirin (Aspirin 81mg Ec Tab) 81 mg DAILY PO 07/04/24 09:00 08/03/24 08:59 07/05/24 09:42 81 MG Atorvastatin Calcium (LIPItor 40MG) 80 mg HS PO 07/04/24 21:00 08/03/24 20:59 07/04/24 20:01 80 MG Clopidogrel Bisulfate (plaVIX 75MG) 75 mg DAILY PO 07/06/24 09:00 08/05/24 08:59 Dextrose (D50w) 50 ml AD PRN IV HYPOGLYCEMIA PROTOCOL 07/03/24 21:30 08/02/24 21:29 Dopamine HCl/ Dextrose 250 ml @ 0 mls/hr PROTOCOL IV 07/05/24 10:30 08/04/24 10:29 07/05/24 11:00 5 MLS/HR EZETIMIBE (Zetia) 10 mg HS PO 07/04/24 21:00 08/03/24 20:59 07/04/24 20:01 10 MG Famotidine (Pepcid 20mg Tab) 20 mg DAILY PO 07/03/24 22:00 08/02/24 21:59 07/05/24 09:42 20 MG Furosemide (LASix 20MG VIAL) 20 mg BID IV 07/03/24 22:00 07/05/24 09:09 DC 07/04/24 19:59 20 MG Glucagon (Glucagon 1mg Kit) 1 mg AD PRN IM HYPOGLYCEMIA PROTOCOL 07/03/24 21:30 08/02/24 21:29 Heparin Sodium/ Dextrose 250 ml @ 0 mls/hr PROTOCOL IV 07/05/24 11:30 08/04/24 11:29 Home Med (Home Medication) DAILY PO 07/04/24 09:00 08/03/24 08:59 Home Med (Home Medication) DAILY PO 07/04/24 09:00 08/03/24 08:59 Insulin Human Regular (humuLIN R 100 UNIT/ML 3ML) INSULIN SLIDING SCAL... ACHS SQ 07/03/24 22:00 08/02/24 21:59 Levothyroxine Sodium (SYNTHroid 100MCG TAB) 100 mcg SYN PO 07/04/24 06:30 08/03/24 06:29 07/05/24 06:22 100 MCG Magnesium Sulfate 50 ml @ 0 mls/hr PROTOCOL PRN IV MAGNESIUM PROTOCOL 07/04/24 16:30 08/03/24 16:29 07/04/24 18:04 25 MLS/HR Metoprolol Succinate (TopROL XL) 50 mg DAILY PO 07/04/24 09:00 08/03/24 08:59 07/05/24 09:42 50 MG Nitroglycerin (Nitrostat) 0.4 mg AD PRN SL CHEST PAIN 07/03/24 21:30 08/02/24 21:29 Ondansetron HCl (zoFRAN 4MG INJ) 4 mg Q6H PRN IV NAUSEA/VOMITING 07/03/24 21:30 08/02/24 21:29 Sacubitril/ Valsartan (Entresto 49 Mg-51 Mg Tablet) 1 each BID PO 07/04/24 09:00 07/05/24 09:10 DC 07/04/24 20:01 1 EACH Sodium Chloride 500 ml @ 500 mls/hr Q1H IV 07/05/24 10:00 07/05/24 12:02 DC 07/05/24 10:25 500 MLS/HR Sodium Chloride 500 ml @ 0 mls/hr Q0M IV 07/04/24 11:00 07/05/24 12:02 DC Spironolactone (Aldactone 25mg) 12.5 mg DAILY PO 07/04/24 09:00 07/05/24 09:09 DC 07/04/24 08:54 12.5 MG DIAGNOSTICS / RADIOLOGY: [ ] ASSESSMENT: Elevated troponin,jaw pain R/O ACS POA Acute on chronic heart failure POA Acute on chronic kidney disease POA Uncontrolled diabetes POA AICD status POA Atrial fibrillation/atrial flutter POA Hypertension POA Hyperlipidemia POA Hypothyroidism POA BPH POA PLAN: Patient remains admitted to the intensive care unit Continue the patient on lunchroom monitor Patient evaluated by automotive service director, diuretics has been placed on hold, the patient will be started on dopamine drip, gentle hydration with IV fluids. Continue to monitor creatinine in a.m.. Patient also to be started on heparin drip. Possible left heart catheterization tomorrow, based on creatinine level. Patient with a echocardiogram done in 2023 with a ejection fraction 15-20%. Nephrology consultation requested, continue to follow input and recommendations. NEURO: Minimize central acting medications as possible. Fall Precautions. Well lighted room through the day and minimize interruptions through the night to prevent acute delirium. PULMONARY: Supplemental 02 as needed BiPAP as necessary, for respiratory distress Titrate Fio2 to keep Spo2 > or = 90% DuoNebs and CPT as needed IS hourly while awake for pulmonary hygiene prn Out of bed to chair as tolerated Maintain aspiration precautions at all times CARDIOVASCULAR: Follow hemodynamics. Vital signs per facility protocol GI & NUTRITION: Continue nutritional support Aspirations precautions Prokinetic agents and laxatives as needed KIDNEYS & ELECTROLYTES: Strict monitoring of intake and output Daily weights Avoid nephrotoxic agents Monitor electrolytes and replace as needed Goal urine output of 30mL/hr or 0.5mL/kg/hr Medications to be dosed according to renal function. Avoid contrast if possible ENDOCRINE: Maintain blood glucose between 100-180 at all times. Insulin sliding scale for blood glucose management Hypoglycemia and hyperglycemia protocol in place INFECTIOUS DISEASE: Trend temperature, WBC and procalcitonin level Follow cultures, deescalate antibiotics as soon as possible. Panculture if new onset fever HEMATOLOGY & COAGULATION: Monitor H&H. Keep Hgb > 7 Transfuse 1 unit of PRBC for Hgb < 7 Transfuse 1 pack of platelets of platelets < 20, 000 Watch for any signs and symptoms of bleeding SKIN: Pressure ulcer prevention per facility protocol Specialty mattress as needed ORTHO/REHAB Continue PT/OT PRN: MEDICATIONS Tylenol 650 mg po every 4 hrs for fever zofran 4 mg IV every 6 hrs for n/v Hydralazine 5 mg IV every 4 hrs systolic pressure > 160 bowel regiment: lactulose 20 gm PO BID PRN constipation Supportive measures: Continue GI and DVT prophylaxis Disposition: Pending improvement in clinical condition All questions answered time spent: > 35 min GISSEL MOELLER MD Jul 05, 2024 12:45
--- NOTE | 2024-07-05 13:17 | CONS ---
[facility] CARDIAC ELECTROPHYSIOLOGY CONSULTATION Date Patient Seen: Jul 05, 2024 Time of Visit: 13:09 Reason for Consultation: Atrial flutter History of Present Illness: The patient is a 79-year-old male known to me, status post upgrade from a pacemaker to a cardiac resynchronization therapy defibrillator in August of 2023 with a Medtronic device. His most recent ejection fraction is 15-20% by echocardiogram. He underwent echo optimization which showed improvement in interventricular synchrony at the apex, however a follow up echocardiogram has not been done. He is now admitted with a ischemic symptoms and cardiac catheterization was planned however postpone due to worsening renal function. He is tentatively scheduled for tomorrow. He also has permanent atrial fibrillation and cardioversion has been contemplated in order to improve his overall cardiac function. He has had atrial fibrillation since at least June of 2022 by review of previous interrogations and EKGs. The last time we have documented sinus rhythm was by a device check in the office on 04/10/2021. His EKGs she shows what appears to be a left-sided atrial flutter and review of telemetry strips shows some intermittent transitioning to atrial fibrillation. He has been maintained chronically on apixaban 5 mg b.i.d. and is currently on heparin. Past Medical History: As above Family History: Noncontributory Social History: Denies smoking or alcohol abuse Review of Systems: negative on a 13 point review Vital Signs (last 8hr) Date Time Temp Pulse Resp B/P (MAP) Pulse Ox O2 Delivery O2 Flow Rate FiO2 07/05/24 07:35 97 Room Air* 0 21 07/05/24 07:33 97.5 Laboratory: [ ] Hematology Labs: Test 07/05/24 04:13 07/04/24 04:29 07/03/24 20:06 Range/Units White Blood Count 6.7 # 4.8-10.8 K/uL Red Blood Count 4.12 L 4.50-6.20 MIL/uL Hemoglobin 13.8 #L 14.0-18.0 g/dL Hematocrit 43.1 # 42-54 % Mean Corpuscular Volume 104.6 H 79-99 fL Mean Corpuscular Hemoglobin 33.5 H 27.0-33.0 pg Mean Corpuscular Hemoglobin Concent 32.0 32.0-36.0 g/dL Red Cell Distribution Width 16.6 H 11.0-15.5 % Platelet Count 134 # 130-400 K/uL Mean Platelet Volume 12.1 H 7.5-10.5 fL Nucleated Red Blood Cells 0.0 0.0-0.19 % Immature Granulocyte % (Auto) 0.8 0-1 % Neutrophils (%) (Auto) 79.2 H 40.0-77.0 % Lymphocytes (%) (Auto) 11.0 L 21.0-51.0 % Monocytes (%) (Auto) 8.2 3.0-13.0 % Eosinophils (%) (Auto) 0.5 0.0-8.0 % Basophils (%) (Auto) 0.3 0.0-5.0 % Neutrophils # (Auto) 10.6 H 1.8-7.7 K/uL Lymphocytes # (Auto) 1.5 1.0-4.8 K/uL Monocytes # (Auto) 1.1 H 0.1-1.0 K/uL Eosinophils # (Auto) 0.07 0.00-0.70 K/uL Basophils # (Auto) 0.04 0.00-0.20 K/uL Absolute Immature Granulocyte (auto 0.11 0-1 K/uL White Cell Morphology Comment See comments Chemistry Labs: Test 07/05/24 11:38 07/05/24 11:00 07/05/24 04:13 07/04/24 04:29 Range/Units Whole Blood Glucose 126 H 70-110 MG/DL Troponin I High Sensitivity 458 *H 4-75 ng/L Sodium Level 143 136-145 mmol/L Potassium Level 4.7 3.5-5.1 mmol/L Chloride Level 105 101-111 mmol/L Carbon Dioxide Level 26 21-32 mmol/L Blood Urea Nitrogen 34 H 7-18 mg/dL Creatinine 2.7 H 0.5-1.3 mg/dL Glomerular Filtration Rate Calc 24 >90 mL/min Random Glucose 107 H 70-105 mg/dL Total Calcium 9.2 8.5-10.1 mg/dL Magnesium Level 2.40 1.80-2.40 mg/dL Total Bilirubin 1.0 # 0.2-1.0 mg/dL Aspartate Amino Transf (AST/SGOT) 25 10-37 U/L Alanine Aminotransferase (ALT/SGPT) 16 # 12-78 U/L Alkaline Phosphatase 129 50-136 U/L Total Protein 6.8 6.0-8.3 g/dL Albumin 3.1 L 3.5-5.0 g/dL Hemoglobin A1c 6.4 H 4.0-6.0 % Estimated Average Glucose (eAG) 137 H 70-126 mg/dL Iron Level 39 L 65-175 mcg/dL Total Iron Binding Capacity 373 250-450 mcg/dL Percent Iron Saturation 10.4 L 30-44 % B-Type Natriuretic Peptide 201 H 0-100 pg/mL Triglycerides Level 119 30-200 mg/dL Cholesterol Level 189 <200 mg/dL LDL Cholesterol 125 H 0-99 mg/dL HDL Cholesterol 46 29-71 mg/dL Test 07/03/24 20:06 Range/Units Total Creatine Kinase 70 21-232 U/L Coagulation Labs: Test 07/04/24 11:36 Range/Units Prothrombin Time 12.4 H 9.6-11.6 SEC Prothromb Time International Ratio 1.19 H 0.85-1.15 Activated Partial Thromboplast Time 34.7 26.3-35.5 SEC Assessment: 1. Atrial fibrillation and flutter: This patient has what has been considered permanent atrial fibrillation. We have documented continuous atrial fibrillation since at least June of 2022, but probably prior to that. The decision was made to deem his atrial fibrillation permanent. 2. Severe nonischemic cardiomyopathy, last ejection fraction 15-20% 3. Coronary artery disease 4. Chronic kidney disease stage 4 Plan: 1. This patient has permanent atrial fibrillation, and if this designation is to be retracted, then he has longstanding persistent atrial fibrillation for more than two years. This makes samaritan in maintenance of sinus rhythm extremely difficult and unlikely to succeed. The presence of what appears to be atrial flutter is functionally equivalent to atrial fibrillation as there was some variability in atrial morphology and some of which more resembles atrial fibrillation. Catheter ablation for longstanding persistent atrial fibrillation can be done however this has an extremely low success rate (<50%), and will usually require more than one procedure. 2. If we were to be aggressive in trying to restore sinus rhythm in this patient, he would need to be anticoagulated uninterruptedly for at least four weeks post cardioversion or ablation. This will be problematic given his upcoming cardiac catheterization and previous history of the left main disease in the event that he would do require bypass surgery. 3. At this point, I would recommend continuing a rate control strategy, although this can be further discussed with Dr. Reyes. Thank you very much for this consultation. RICARDO CONSTANTINO MD Jul 05, 2024 13:17
--- NOTE | 2024-07-05 13:54 | EKG ---
[facility] Test Date: 2024-07-05 Test Time: 11:55:26 Pat Name: DAVID MATHEW Department: [facility] Room: 208 1 Gender: M Manager Occupational: r0 : 1945 Requested By: AYAAN GONZALEZ Order Number: [id number] Reading MD: Michael Jefferson Measurements Intervals [place] Rate: 75 P: 0 OK: 0 QRS: 190 QRSD: 166 T: -46 QT: 431 QTc: 484 Interpretive Statements Afib/flut and V-paced complexes Compared to ECG 07/03/2024 19:50:07 No significant changes Electronically Signed On 07-05-2024 14:05:13 CDT by Michael Jefferson Please click the below link to view image of tracing.
[2024-07-05] MEDS: LOPERAMIDE 1 MG/7.5 ML UDCUP PO ONE (14:06)
[2024-07-05] MEDS: HEParin 25,000 UNITS/250ML D5W 250 ML IV SCH (15:10)
[2024-07-06] VITALS (52 sets, daily range): BP systolic 95–147; BP diastolic 45–118; PULSE 59–85; RESP 4–31; TEMP 97.5–98.4; O2SAT 93–96
--- NOTE | 2024-07-06 01:13 | NUR ---
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 pt has a dual pacemaker/AICD [employer] DR. REIS was consulted MD is aware of pt condition a flutter since 2021, on elequis with EF 15-20%, have attempted cardioversion with no success. now on heparin drip for anticoagulation support for afib. Doesn't recommend any other treatments than rate control. Evaluated labs no new orders at this time. page benchmark again if sustained. noted.
[2024-07-06 05:07] LABS: BASOPHILS # (AUTO) 0.01 K/uL (0.00-0.20); BASOPHILS % (AUTO) 0.1 % (0.0-5.0); EOSINOPHILS # (AUTO) 0.09 K/uL (0.00-0.70); EOSINOPHILS % (AUTO) 1.2 % (0.0-8.0); HEMATOCRIT 42.4 % (42-54); IMMATURE GRANULOCYTE ABSOLUTE 0.02 K/uL (0-1); LYMPHOCYTES # (AUTO) 0.7 K/uL (1.0-4.8); MEAN CORPUSCULAR HEMOGLOBIN 33.3 pg (27.0-33.0); MEAN CORPUSCULAR HGB CONC 32.3 g/dL (32.0-36.0); MEAN CORPUSCULAR VOLUME 103.2 fL (79-99); MONOCYTES # (AUTO) 0.8 K/uL (0.1-1.0); MONOCYTES % (AUTO) 10.9 % (3.0-13.0); NEUTROPHILS # (AUTO) 5.8 K/uL (1.8-7.7); NEUTROPHILS % (AUTO) 78.5 % (40.0-77.0); PLATELET COUNT (AUTO) 155 K/uL (130-400); RED BLOOD CELL COUNT(AUTO) 4.11 MIL/uL (4.50-6.20); RED CELL DISTRIBUTION WIDTH 16.4 % (11.0-15.5); WHITE BLOOD COUNT (AUTO) 7.4 K/uL (4.8-10.8)
[2024-07-06 05:20] LABS: INR 1.19 (0.85-1.15); PROTHROMBIN TIME 12.4 SEC (9.6-11.6)
[2024-07-06 05:21] LABS: PARTIAL THROMBOPLASTIN TIME 58.7 SEC (26.3-35.5)
[2024-07-06 06:15] LABS: ALBUMIN 2.9 g/dL (3.5-5.0); BILIRUBIN,TOTAL 1.6 mg/dL (0.2-1.0); CREATININE 2.4 mg/dL (0.5-1.3); POTASSIUM 4.7 mmol/L (3.5-5.1); TOTAL PROTEIN, SERUM 6.6 g/dL (6.0-8.3)
--- NOTE | 2024-07-06 09:09 | PN ---
FOLLOWUP PROGRESS NOTE SUBJECTIVE: A 79-year-old male with a history of known cardiomyopathy. The patient initially presented with underlying CHF. The patient has had acute on chronic renal dysfunction in the hospital. The patient has been started on dopamine. The patient with an elevated BUN and creatinine. The patient is being seen by Cardiology and is scheduled for heart cath later today and the patient is being seen as a followup visit for all of the above. REVIEW OF SYSTEMS: GENERAL: He is feeling improved since admission. HEENT: No change in vision. No change in hearing. CARDIOVASCULAR: There is no current chest pain or palpitations. PULMONARY: His shortness of breath is much improved. GASTROINTESTINAL: He is tolerating a diet. MUSCULOSKELETAL: Complains of weakness. PHYSICAL EXAMINATION: VITAL SIGNS: Blood pressure 117/68, pulse 60s, afebrile. GENERAL: Chronically ill male, elderly, lying in bed on the medical floor. HEENT: Head is atraumatic. Pupils are equal, roving to light. Oropharynx is without exudate. Nares are clear. NECK: There is no JVP. There is no thyromegaly, no mass. CARDIOVASCULAR: Regular. There is no S3, S4 gallop. LUNGS: Coarse with equal thoracic movement. ABDOMEN: Soft, nondistended, nontender. EXTREMITIES: Reveal no clubbing, no cyanosis. NEUROLOGIC: He is awake. He is alert. LABORATORY DATA: Hemoglobin 13, hematocrit 42. Sodium 141, BUN 33, creatinine is 2.4. IMPRESSION: * Acute on chronic renal failure. * Cardiomyopathy. * Hypertension. * Diabetes mellitus. PLAN: The patient with underlying renal dysfunction. Creatinine did stabilize overnight. The patient is tentatively scheduled for a heart catheterization. Would recommend normal saline at 75 mL per hour post procedure, and we will continue to follow the patient closely. All labs can be repeated in the a.m. Workup is ongoing per Cardiology. The patient with multiple questions, all of which were answered. TID: [id number] RECEIPT: [id number]
[2024-07-06] MEDS: cloPIDOgrel 75MG TAB PO SCH (09:32)
--- NOTE | 2024-07-06 10:16 | PN ---
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 He ruled in for a non ST segment elevation myocardial infarction with a rise of cardiac troponin from 118>>>118>>>[id number]>>>[id number]. The patient relates that his discomfort lasted only approximately 30 minutes. His EKG on arrival demonstrates biventricular pacing in approximately 1-1.[address] depression in V2. His troponin trend suggest that troponin sample 3 was a lab error. He was scheduled for a left heart catheterization on 07/05/2024 but because of an abnormal creatinine the procedure has been rescheduled. Admission creatinine was 2.4, repeat 1.5, and repeat 2.7. He does have known stage IV chronic renal insufficiency. The procedure could be performed with very limited contrast if we confirm that renal function is stable. He is tentatively scheduled for left heart catheterization later today. His chest x-ray demonstrates a left pleural effusion and chronic bilateral basilar infiltrates also present on chest x-ray August 2023. Physical Examination: GENERAL: No acute distress. HEAD: Normal with no signs of head trauma. EYES: PERRLA, EOMI, conjunctiva and sclera normal. NECK: Supple without JVD. There is no tenderness, lymphadenopathy, or masses. No thyromegaly. Normal carotid upstrokes without bruits. LUNGS: Clear breath sounds bilaterally. Diminished breath sounds at the bases. No wheezes, or rhonchi. HEART: Normal rate and rhythm. Normal S1 and S2 without murmurs, gallop or rub. VASC: Peripheral pulses +2 bilaterally. EXT: No clubbing, cyanosis or edema. NEURO: Awake, alert, and oriented x3. No focal neurological deficits noted. Laboratory: Hematology Labs: Test 07/06/24 05:01 Range/Units White Blood Count 7.4 4.8-10.8 K/uL Red Blood Count 4.11 L 4.50-6.20 MIL/uL Hemoglobin 13.7 L 14.0-18.0 g/dL Hematocrit 42.4 42-54 % Mean Corpuscular Volume 103.2 H 79-99 fL Mean Corpuscular Hemoglobin 33.3 H 27.0-33.0 pg Mean Corpuscular Hemoglobin Concent 32.3 32.0-36.0 g/dL Red Cell Distribution Width 16.4 H 11.0-15.5 % Platelet Count 155 130-400 K/uL Mean Platelet Volume 11.4 H 7.5-10.5 fL Immature Granulocyte % (Auto) 0.3 0-1 % Neutrophils (%) (Auto) 78.5 H 40.0-77.0 % Lymphocytes (%) (Auto) 9.0 L 21.0-51.0 % Monocytes (%) (Auto) 10.9 3.0-13.0 % Eosinophils (%) (Auto) 1.2 0.0-8.0 % Basophils (%) (Auto) 0.1 0.0-5.0 % Neutrophils # (Auto) 5.8 1.8-7.7 K/uL Lymphocytes # (Auto) 0.7 L 1.0-4.8 K/uL Monocytes # (Auto) 0.8 0.1-1.0 K/uL Eosinophils # (Auto) 0.09 0.00-0.70 K/uL Basophils # (Auto) 0.01 0.00-0.20 K/uL Absolute Immature Granulocyte (auto 0.02 0-1 K/uL Nucleated Red Blood Cells 0.0 0.0-0.19 % Chemistry Labs: Test 07/06/24 05:01 07/05/24 20:15 07/05/24 11:00 07/05/24 04:13 Range/Units Sodium Level 141 136-145 mmol/L Potassium Level 4.7 3.5-5.1 mmol/L Chloride Level 104 101-111 mmol/L Carbon Dioxide Level 25 21-32 mmol/L Blood Urea Nitrogen 33 H 7-18 mg/dL Creatinine 2.4 H 0.5-1.3 mg/dL Glomerular Filtration Rate Calc 27 >90 mL/min Random Glucose 129 H 70-105 mg/dL Total Calcium 9.2 8.5-10.1 mg/dL Total Bilirubin 1.6 H 0.2-1.0 mg/dL Aspartate Amino Transf (AST/SGOT) 15 10-37 U/L Alanine Aminotransferase (ALT/SGPT) 8 L 12-78 U/L Alkaline Phosphatase 125 50-136 U/L Total Protein 6.6 6.0-8.3 g/dL Albumin 2.9 L 3.5-5.0 g/dL Whole Blood Glucose 161 H 70-110 MG/DL Troponin I High Sensitivity 458 *H 4-75 ng/L Magnesium Level 2.40 1.80-2.40 mg/dL Coagulation Labs: Test 07/06/24 05:01 Range/Units Prothrombin Time 12.4 H 9.6-11.6 SEC Prothromb Time International Ratio 1.19 H 0.85-1.15 Activated Partial Thromboplast Time 58.7 #H 26.3-35.5 SEC Diagnostics / Radiology: 2D echo 12/18/2023: Conclusion LVEF is 15-20% with grade 2 diastolic dysfunction. There is borderline to mild left ventricular hypertrophy. The right ventricle is moderately to severely dilated. Right ventricular systolic function is severely reduced. Device lead is seen on RA and RV There is a mobile density in the right atrium which appears to be attached to the device lead, consistent with thrombus, vegetation, or fibrous tissue. Trace aortic regurgitation. The mitral valve is mildly thickened. Mitral annular calcification is mild. Mitral regurgitation is moderate. There is moderate to severe tricuspid regurgitation. Right ventricular systolic pressure is estimated at 50-60 mmHg. There is mild to moderate pulmonic valvular regurgitation. IVC is dilated and collapses >50% with inspiration. Small pericardial effusion near the RA. Left pleural effusion. DICTATED BY: SOUTH CONSTANTINO MD DATE: 12/18/23 1452 Impression and Plan: Non STEMI: Troponin pattern 118>>>118>>>[id number]>>>[id number] >>> 458 (3rd troponin likely lab error): Nonobstructive coronary artery disease by cardiac catheterization 09/08/2023 with 30% left main stenosis and 30% diffuse mid LAD stenosis at that time: -EKG demonstrated anterior ST depression -begin dual antiplatelet therapy with aspirin plus clopidogrel -plan left heart catheterization when renal function in a stable pattern with limited contrast, progression of LAD disease suspected Severe dilated, nonischemic cardiomyopathy with LVEF of 15-20% by 2D echo 08/12/2023 and by repeat 2D echo 12/18/2023: Moderate MR and moderate TR by 2D echocardiogram 12/18/2023: -the patient has been intolerant of Jardiance and Farxiga -the patient underwent ECHO optimization of his biventricular pacemaker 02/23/2024 -the patient may benefit from church of a normal sinus rhythm and we will consider direct current cardioversion if he reports compliance with his Eliquis History of permanent atrial fibrillation/flutter: Nonsustained wide complex tachycardia/aberrancy: -the patient has been evaluated by Dr. South Constantino and details outlined in his consult note 07/05/2024. Conclusion at this point is to continue strategy of rate control and anticoagulation. Status post biventricular pacemaker/AICD with [employer] [place] MRI CARDIAC CATH TECHNOLOGIST-D 09/08/[address] [place] Constantino: Status post echo optimization of biventricular pacemaker 02/23/2024: -continue efforts at guideline directed medical therapy Comorbidities: Long-term anticoagulation with Eliquis Hyperlipidemia Hypothyroidism Stage IV chronic renal insufficiency Type 2 diabetes with renal and circulatory manifestations Obstructive sleep apnea Fibrotic versus thrombotic thickening of the right atrial lead by 2D echo 12/18/2023 Moderate MR and moderate TR by 2D echo 12/18/2023 COTY JONES Jul 06, 2024 10:16
--- NOTE | 2024-07-06 11:35 | PN ---
[facility] PROGRESS NOTE Date of Service: Jul 06, 2024 Time of Service: 11:34 SUBJECTIVE: This is a 79-year-old male with past medical history of hypertension, hypothyroidism, atrial fibrillation, CHF with AICD, hyperlipidemia, BPH and diabetes who was brought by ambulance to the ED for complaints of chest pain and nausea which started 3 days ago. As per patient he was carrying groceries and was dropped off by the bus and he had to walk 300 yards to his house. Upon arrival to his house patient was short of breath but he managed to cook his food and eat his meal. Patient stated he took a nap for 2 hours he said and when he woke up he was still having shortness of breath and jaw pain as well so he called his relative who is a nurse practitioner and instructed him to go to the ER ,thus prompted this admission. Upon arrival to ER patient was not having chest pain but continued to be short of breath and he requested for oxygen. Seen and examined patient in the ER awake,alert and coherent on oxygen supplementation. Patient denied any chest pain,palpitation,nausea,vomiting,cough and shortness of breath. In the ER latest vital signs temperature 98.1, heart rate 85, blood pressure 119/73, saturation 97% on room air. In the ER Labs: Hemoglobin 13, hematocrit 42, platelet count 145. Sodium 140, potassium 4.8, chloride 106, BUN 29, creatinine 2.4, GFR 27, glucose 200 troponin 118, BNP 1580. Chest x-ray result revealed small left pleural effusion subjacent passive atelectasis. EKG result revealed AFib/a flutter and ventricular paced rhythm heart rate 74. While in the ER patient received furosemide 20 mg IV and aspirin 325 mg p.o. Patient was admitted for further evaluation and medical management 07/04 patient is seen and examined at bedside, alert oriented x3, hemodynamically stable, following commands, denied chest pain, no shortness shortness for breath, no nausea, no vomiting, no abdominal discomfort. 07/05 patient is seen and examined at bedside, case discussed with the RN, no acute events overnight, the patient had episode of loose stool this morning, he is requesting Imodium, BP 135/77, afebrile, saturating normal on room air, the patient is alert oriented x3, hemodynamically stable, no chest pain, shortness shortness for breath, no nausea, no vomiting. Creatinine today at 2.7 07/06 patient is seen and examined at bedside, case discussed with the RN, no acute events overnight, patient hemodynamically stable, alert oriented x3, denied chest pain, denies shortness a breath, no nausea, no vomiting, he remains on heparin drip as well as dopamine drip, NPO, scheduled for left heart catheterization today. REVIEW OF SYSTEMS CONSTITUTIONAL: Denies fevers, chills, or night sweats. No unintentional weight loss reported. NEUROLOGICAL: Denies headache, amaurosis fugax, motor weakness, sensory deficit, vertigo/spinning sensation, gait abnormalities, or tremors. ENT: No hearing loss, otalgia, otorrhea, rhinitis, rhinorrhea, hoarseness, or sore throat. CARDIOVASCULAR: Denies any exertional angina, dyspnea on exertion, orthopnea, paroxysmal nocturnal dyspnea, palpitations, life-threatening arrhythmias, claudication. PULMONARY: Complaints of shortness of breaths Denies cough, phlegm/sputum, hemoptysis, pleuritic chest pain. SLEEP: Denies morning headaches, daytime somnolence or napping. Denies difficulty falling asleep, staying asleep, waking from sleep. Denies knowledge of snoring. GASTROINTESTINAL: Denies any type of dysphagia to either liquids or solids. Denies nausea, vomiting, pyrosis, early satiety, abdominal pain, diarrhea, constipation, or changes in stool consistency or caliber. Denies coffee-ground emesis, hematemesis, hematochezia, or melanotic stools. GENITOURINARY: Denies frequency, urgency, nocturia, hematuria or incontinence (Storage/Irritative symptoms.) Low urinary stream, straining to void, urinary intermittency or hesitancy, splitting of the voiding stream, terminal dribbling. ENDOCRINOLOGIC: Denies polyuria, polydipsia, polyphagia or heat/cold intolerances. HEMATOLOGIC: Denies thrombophilia/previous clots, or coagulopathy/bleeding disorders. ONCOLOGIC: Denies personal history of malignancy. DERMATOLOGIC: Denies rashes or pruritus. PSYCHIATRIC: Denies any suicidal or homicidal ideation. Denies hallucinations. PHYSICAL EXAM GENERAL APPEARANCE: The patient is awake, alert, and oriented, in no acute cardiopulmonary distress. NEUROLOGICAL: Cranial nerves II-XII grossly intact. Motor is 5/5 in bilateral upper and lower extremities proximal to distal. No sensory deficits. HEENT: Face is symmetric. Pupils are equal and reactive. Extraocular movements are intact. NECK: Supple. No JVD. No thyromegaly. No submental, submandibular, pre- /postauricular, occipital or supraclavicular lymphadenopathy. CHEST: Normal chest expansion. No Telemetry. LUNGS: Absence of any rales, rhonchi or any wheezing. CARDIOVASCULAR: Regular. S1 and S2 normal. No appreciable rubs, murmurs or gallops. ABDOMEN: Soft, nontender, and nondistended. There is no rebound, voluntary guarding, or rigidity. : Deferred. No Solo. EXTREMITIES: Non-edematous and not cyanotic. No clubbing. Good capillary refill. SKIN: No skin breakdown. Vital Signs (last 8hr) Date Time Temp Pulse Resp B/P (MAP) Pulse Ox O2 Delivery O2 Flow Rate FiO2 07/06/24 07:00 97.9 66 18 117/68 95 Room Air 07/06/24 05:00 67 24 96 07/06/24 04:45 98.1 71 20 106/72 95 Nasal Cannula 07/06/24 04:30 59 20 95 07/06/24 04:00 95 Nasal Cannula* 2 28 07/06/24 04:00 63 20 97 07/06/24 03:45 69 20 100/50 94 Nasal Cannula 2.0 LABS: Laboratory: Test 07/06/24 05:01 07/05/24 20:15 07/05/24 11:00 07/05/24 04:13 Range/Units White Blood Count 7.4 4.8-10.8 K/uL Red Blood Count 4.11 L 4.50-6.20 MIL/uL Hemoglobin 13.7 L 14.0-18.0 g/dL Hematocrit 42.4 42-54 % Mean Corpuscular Volume 103.2 H 79-99 fL Mean Corpuscular Hemoglobin 33.3 H 27.0-33.0 pg Mean Corpuscular Hemoglobin Concent 32.3 32.0-36.0 g/dL Red Cell Distribution Width 16.4 H 11.0-15.5 % Platelet Count 155 130-400 K/uL Mean Platelet Volume 11.4 H 7.5-10.5 fL Immature Granulocyte % (Auto) 0.3 0-1 % Neutrophils (%) (Auto) 78.5 H 40.0-77.0 % Lymphocytes (%) (Auto) 9.0 L 21.0-51.0 % Monocytes (%) (Auto) 10.9 3.0-13.0 % Eosinophils (%) (Auto) 1.2 0.0-8.0 % Basophils (%) (Auto) 0.1 0.0-5.0 % Neutrophils # (Auto) 5.8 1.8-7.7 K/uL Lymphocytes # (Auto) 0.7 L 1.0-4.8 K/uL Monocytes # (Auto) 0.8 0.1-1.0 K/uL Eosinophils # (Auto) 0.09 0.00-0.70 K/uL Basophils # (Auto) 0.01 0.00-0.20 K/uL Absolute Immature Granulocyte (auto 0.02 0-1 K/uL Nucleated Red Blood Cells 0.0 0.0-0.19 % Prothrombin Time 12.4 H 9.6-11.6 SEC Prothromb Time International Ratio 1.19 H 0.85-1.15 Activated Partial Thromboplast Time 58.7 #H 26.3-35.5 SEC Sodium Level 141 136-145 mmol/L Potassium Level 4.7 3.5-5.1 mmol/L Chloride Level 104 101-111 mmol/L Carbon Dioxide Level 25 21-32 mmol/L Blood Urea Nitrogen 33 H 7-18 mg/dL Creatinine 2.4 H 0.5-1.3 mg/dL Glomerular Filtration Rate Calc 27 >90 mL/min Random Glucose 129 H 70-105 mg/dL Total Calcium 9.2 8.5-10.1 mg/dL Total Bilirubin 1.6 H 0.2-1.0 mg/dL Aspartate Amino Transf (AST/SGOT) 15 10-37 U/L Alanine Aminotransferase (ALT/SGPT) 8 L 12-78 U/L Alkaline Phosphatase 125 50-136 U/L Total Protein 6.6 6.0-8.3 g/dL Albumin 2.9 L 3.5-5.0 g/dL Whole Blood Glucose 161 H 70-110 MG/DL Troponin I High Sensitivity 458 *H 4-75 ng/L Magnesium Level 2.40 1.80-2.40 mg/dL Current Medications Medications (Trade) Dose Ordered Sig/Frank Route PRN Reason Start Time Stop Time Status Last Admin Dose Admin Acetaminophen (TYLenol 325MG TAB) 650 mg Q4H PRN PO MILD PAIN (1-3) 07/03/24 21:30 08/02/24 21:29 Acetaminophen (TYLenol 325MG TAB) 650 mg Q6H PRN PO TEMPERATURE GREATER THAN 101.5 07/03/24 21:30 08/02/24 21:29 07/04/24 20:04 650 MG Apixaban (EliquIS) 5 mg BID PO 07/04/24 09:00 07/04/24 10:49 DC 07/04/24 08:55 5 MG Aspirin (Aspirin 325mg Tab) 325 mg ONCE PO 07/03/24 20:30 07/03/24 23:59 DC 07/03/24 20:17 325 MG Aspirin (Aspirin 81mg Ec Tab) 81 mg DAILY PO 07/04/24 09:00 08/03/24 08:59 07/06/24 09:32 81 MG Atorvastatin Calcium (LIPItor 40MG) 80 mg HS PO 07/04/24 21:00 08/03/24 20:59 07/05/24 20:29 80 MG Clopidogrel Bisulfate (plaVIX 75MG) 75 mg DAILY PO 07/06/24 09:00 08/05/24 08:59 07/06/24 09:32 75 MG Dextrose (D50w) 50 ml AD PRN IV HYPOGLYCEMIA PROTOCOL 07/03/24 21:30 08/02/24 21:29 Dopamine HCl/ Dextrose 250 ml @ 0 mls/hr PROTOCOL IV 07/05/24 10:30 08/04/24 10:29 07/05/24 11:00 5 MLS/HR EZETIMIBE (Zetia) 10 mg HS PO 07/04/24 21:00 08/03/24 20:59 07/05/24 20:29 10 MG Famotidine (Pepcid 20mg Tab) 20 mg DAILY PO 07/03/24 22:00 08/02/24 21:59 07/05/24 09:42 20 MG Furosemide (LASix 20MG VIAL) 20 mg BID IV 07/03/24 22:00 07/05/24 09:09 DC 07/04/24 19:59 20 MG Glucagon (Glucagon 1mg Kit) 1 mg AD PRN IM HYPOGLYCEMIA PROTOCOL 07/03/24 21:30 08/02/24 21:29 Heparin Sodium/ Dextrose 250 ml @ 0 mls/hr PROTOCOL IV 07/05/24 11:30 08/04/24 11:29 07/05/24 15:10 13.19 MLS/HR Home Med (Home Medication) DAILY PO 07/04/24 09:00 08/03/24 08:59 Home Med (Home Medication) DAILY PO 07/04/24 09:00 08/03/24 08:59 Insulin Human Regular (humuLIN R 100 UNIT/ML 3ML) INSULIN SLIDING SCAL... ACHS SQ 07/03/24 22:00 08/02/24 21:59 Levothyroxine Sodium (SYNTHroid 100MCG TAB) 100 mcg SYN PO 07/04/24 06:30 08/03/24 06:29 07/06/24 05:38 100 MCG Magnesium Sulfate 50 ml @ 0 mls/hr PROTOCOL PRN IV MAGNESIUM PROTOCOL 07/04/24 16:30 08/03/24 16:29 07/04/24 18:04 25 MLS/HR Metoprolol Succinate (TopROL XL) 50 mg DAILY PO 07/04/24 09:00 08/03/24 08:59 07/06/24 09:32 50 MG Nitroglycerin (Nitrostat) 0.4 mg AD PRN SL CHEST PAIN 07/03/24 21:30 08/02/24 21:29 Ondansetron HCl (zoFRAN 4MG INJ) 4 mg Q6H PRN IV NAUSEA/VOMITING 07/03/24 21:30 08/02/24 21:29 Sacubitril/ Valsartan (Entresto 49 Mg-51 Mg Tablet) 1 each BID PO 07/04/24 09:00 07/05/24 09:10 DC 07/04/24 20:01 1 EACH Sodium Chloride 500 ml @ 500 mls/hr Q1H IV 07/05/24 10:00 07/05/24 12:02 DC 07/05/24 10:25 500 MLS/HR Sodium Chloride 500 ml @ 0 mls/hr Q0M IV 07/04/24 11:00 07/05/24 12:02 DC Spironolactone (Aldactone 25mg) 12.5 mg DAILY PO 07/04/24 09:00 07/05/24 09:09 DC 07/04/24 08:54 12.5 MG DIAGNOSTICS / RADIOLOGY: [ ] ASSESSMENT: Elevated troponin,jaw pain R/O ACS POA Acute on chronic heart failure POA Acute on chronic kidney disease POA Uncontrolled diabetes POA AICD status POA Atrial fibrillation/atrial flutter POA Hypertension POA Hyperlipidemia POA Hypothyroidism POA BPH POA PLAN: Patient remains admitted to the intensive care unit Continue the patient on grocery shopper NPO, scheduled for left heart catheterization today. Continue heparin and dopamine drip. Continue to follow Cardiology input and recommendation Patient with a echocardiogram done in 2023 with a ejection fraction 15-20%. Nephrology consultation requested, continue to follow input and recommendations. NEURO: Minimize central acting medications as possible. Fall Precautions. Well lighted room through the day and minimize interruptions through the night to prevent acute delirium. PULMONARY: Supplemental 02 as needed BiPAP as necessary, for respiratory distress Titrate Fio2 to keep Spo2 > or = 90% DuoNebs and CPT as needed IS hourly while awake for pulmonary hygiene prn Out of bed to chair as tolerated Maintain aspiration precautions at all times CARDIOVASCULAR: Follow hemodynamics. Vital signs per facility protocol GI & NUTRITION: Continue nutritional support Aspirations precautions Prokinetic agents and laxatives as needed KIDNEYS & ELECTROLYTES: Strict monitoring of intake and output Daily weights Avoid nephrotoxic agents Monitor electrolytes and replace as needed Goal urine output of 30mL/hr or 0.5mL/kg/hr Medications to be dosed according to renal function. Avoid contrast if possible ENDOCRINE: Maintain blood glucose between 100-180 at all times. Insulin sliding scale for blood glucose management Hypoglycemia and hyperglycemia protocol in place INFECTIOUS DISEASE: Trend temperature, WBC and procalcitonin level Follow cultures, deescalate antibiotics as soon as possible. Panculture if new onset fever HEMATOLOGY & COAGULATION: Monitor H&H. Keep Hgb > 7 Transfuse 1 unit of PRBC for Hgb < 7 Transfuse 1 pack of platelets of platelets < 20, 000 Watch for any signs and symptoms of bleeding SKIN: Pressure ulcer prevention per facility protocol Specialty mattress as needed ORTHO/REHAB Continue PT/OT PRN: MEDICATIONS Tylenol 650 mg po every 4 hrs for fever zofran 4 mg IV every 6 hrs for n/v Hydralazine 5 mg IV every 4 hrs systolic pressure > 160 bowel regiment: lactulose 20 gm PO BID PRN constipation Supportive measures: Continue GI and DVT prophylaxis Disposition: Pending improvement in clinical condition All questions answered time spent: > 35 min GISSEL MOELLER MD Jul 06, 2024 11:35
[2024-07-06] MEDS ORDERED: LIDOCAINE HCL 400MG/20ML VIAL ONE (11:55)
[2024-07-06] MEDS ORDERED: HEParin-NS 1,000 UNIT/500 ML 1,000 ML IV ONE (11:55)
[2024-07-06] MEDS ORDERED: NITROGLYCERIN 50MG VIAL ONE (11:56)
[2024-07-06] MEDS ORDERED: IOHEXOL 350 MG/ML 100ML INFUS..BTL IV ONE (11:56)
[2024-07-06] MEDS ORDERED: IOHEXOL-350 50ML VIAL IV ONE (11:56)
[2024-07-06] MEDS ORDERED: MIDAZOLAM HCL 1 MG/ML 2ML VIAL ONE (12:44)
[2024-07-06] MEDS ORDERED: FENTanyl CITRate PF 50 MCG/1 ML 2ML VIAL ONE (12:44)
[2024-07-06] MEDS ORDERED: HEParin 10,000 UNIT/10ML (1,000 UNIT/ML) VIAL ONE (12:44)
[2024-07-06] MEDS ORDERED: BIVALIRUDIN 250 MG/VIAL IV ONE (13:45)
[2024-07-06] MEDS ORDERED: cloPIDOgrel 300MG TAB ONE (14:08)
[2024-07-06] MEDS ORDERED: ASPIRIN 325MG EC TAB PO ONE (14:08)
[2024-07-06] MEDS ORDERED: GLUCAGON 1MG KIT 1 MG ML IM PRN (14:30)
[2024-07-06] MEDS ORDERED: DEXTROSE 50%-WATER 50 ML DISP.SYRIN IV PRN (14:30)
--- NOTE | 2024-07-06 14:42 | PRN ---
DATE OF PROCEDURE: 07/06/2024 PROCEDURE PERFORMED: LEFT HEART CATHETERIZATION, RIGHT AND LEFT SELECTIVE CORONARY ANGIOGRAM, PTCA AND ADRY TO THE POSTEROLATERAL SEGMENT WITH A 2.5 X 15 MM MEDTRONIC ANNIE FRONTIER ADRY, PERCLOSE SUTURE CLOSURE OF THE RIGHT COMMON FEMORAL ARTERY AND CONSCIOUS SEDATION HORSE SHOW MANAGER: Ayaan Gonzalez MD, [facility] INDICATION: [place] [id number] PROCEDURE NOTE: After informed consent was obtained the patient was prepped and draped in the usual sterile fashion. A 6 Indonesian arterial sheath was inserted in the right femoral artery using a modified Seldinger technique with a front wall, first pass puncture. This was performed after fluoroscopic identification of bony landmarks to facilitate a more accurate puncture of the right common femoral artery. The arterial sheath was aspirated and flushed. A 6 Indonesian pigtail catheter was then advanced over a J-tipped guidewire to the ascending aorta and was prolapsed into the left ventricle. The catheter was aspirated and flushed and pressure measurements were obtained. No LV-gram was performed due to the presence of advanced stage IV chronic renal insufficiency. A pullback procedure was performed in the catheter was removed over a J-tip guidewire. A 6F JL-4 was then advanced to the ascending aorta over a J-tipped guidewire, was aspirated and flushed, and was used for selective left coronary angiograms in multiple obliquities. A JR-4 was advanced in a similar fashion to the ascending aorta over a J-tipped guidewire and was used for selective right coronary angiograms in multiple obliquities with findings as outlined below. Percutaneous coronary intervention: A seven Indonesian JR4 guiding catheter was used for the intervention and provided excellent backup support. A 300 0.014 in BMW wire tract easily and provided adequate support for the intervention. A 2.5 x 15 mm Medtronic [place] drug-eluting stent was directly deployed just distal to the takeoff of the posterolateral branch and final results were excellent reducing a 99% stenosis to a -10% residual. No edge dissection of distal embolization was noted. Perclose suture closure with was successful without bleeding or hematoma. The patient tolerated the procedure well and was returned to the holding area in stable condition. FINDINGS: LEFT HEART HEMODYNAMICS: The patient is LVEDP was 32 mm Hg. There was no aortic valve gradient on pullback procedure. LEFT VENTRICULOGRAM: [No left ventriculogram was performed due to stage IV chronic renal insufficiency.] CORONARY ANGIOGRAM: LEFT MAIN: [It was a 50% ostial left main stenosis.] LEFT ANTERIOR DESCENDING: [T LAD had a 30% mid stenosis and a 40% stenosis in the mid to distal segment just after the 2nd diagonal branch. There was a 60% ostial diagonal two branch stenosis.] LEFT CIRCUMFLEX: [Left circumflex was nondominant and normal.] RAMUS INTERMEDIATE BRANCH: [There was a 70% stenosis in the ramus intermediate branch.] RIGHT CORONARY ARTERY: [The right coronary artery was dominant and had a 30% distal stenosis, 99% stenosis in the posterolateral segment (culprit), 70% ostial PDA stenosis, 60% mid PDA stenosis, and a 30% stenosis in the posterolateral branch.] IMPRESSION: Non ST segment elevation ID secondary to 99% stenosis in the posterolateral segment prior to a [place] [address]. 50% left main stenosis with otherwise borderline nonobstructive coronary artery disease with 40% mid to distal LAD stenosis, 60% diagonal one stenosis, 70% ramus intermediate stenosis, and 70% ostial PDA stenosis. Nonischemic cardiomyopathy with LVEF of 15-20%. Successful PTCA and stenting of the posterolateral segment with a Medtronic Annie [place] 2.5 x 15 mm drug-eluting stent RECOMMENDATION: Dual antiplatelet therapy for three months followed by single antiplatelet therapy with Eliquis for chronic atrial fibrillation Risk factor modification COMPLICATIONS OF PROCEDURE: None, the patient tolerated the procedure well and was returned to his room in stable condition. HEMOSTASIS: Successful Perclose suture closure without bleeding or hematoma. ESTIMATED BLOOD LOSS: Less than 10 mL CONTRAST TOTAL: 60 mL AYAAN GONZALEZ MD Jul 06, 2024 14:42
[2024-07-06] MEDS: INSULIN humuLIN R 100 UNIT/ML 3ML SQ SCH (16:30)
[2024-07-06] MEDS: 0.9%NACL 1000ML 1,000 ML IV SCH (17:15)
[2024-07-06 19:52] LABS: CREATININE,URINE RANDOM 166.61 mg/dL (30-135)
[2024-07-07] VITALS (31 sets, daily range): BP systolic 105–141; BP diastolic 54–89; PULSE 67–84; RESP 4–33; TEMP 98–98.4; O2SAT 95–98
[2024-07-07 04:26] LABS: HEMATOCRIT 41.8 % (42-54); MEAN CORPUSCULAR HEMOGLOBIN 33.7 pg (27.0-33.0); MEAN CORPUSCULAR HGB CONC 32.5 g/dL (32.0-36.0); MEAN CORPUSCULAR VOLUME 103.5 fL (79-99); RED BLOOD CELL COUNT(AUTO) 4.04 MIL/uL (4.50-6.20); RED CELL DISTRIBUTION WIDTH 16.4 % (11.0-15.5)
[2024-07-07 04:44] LABS: ALBUMIN 2.7 g/dL (3.5-5.0); BILIRUBIN,TOTAL 1.5 mg/dL (0.2-1.0); MAGNESIUM 2.1 mg/dL (1.80-2.40); POTASSIUM 4.7 mmol/L (3.5-5.1); TOTAL PROTEIN, SERUM 6.4 g/dL (6.0-8.3)
--- NOTE | 2024-07-07 06:36 | NUR ---
turned off dopamine and NS now pt siting on side of bed, s/p LHC, right groin soft and intact, dressing dry and intact no pain. no chest pain.
[2024-07-07] MEDS ORDERED: APIX2.5T PO (08:37)
[2024-07-07] MEDS ORDERED: CLOP-31 PO (08:37)
[2024-07-07] MEDS ORDERED: ASPI-1443 PO (08:37)
[2024-07-07] MEDS ORDERED: FURO20TA4 PO (08:38)
--- NOTE | 2024-07-07 08:57 | DS ---
[facility] CARDIOLOGY DISCHARGE SUMMARY Date of Admission: Jul 03, 2024 at 21:10 Date of Discharge: Jul 07, 2024 Discharge Diagnoses: [Non STEMI Troponin pattern 118>>>118>>>[id number]>>>[id number] >>> 458 99% distal RCA stenosis in the posterolateral segment by cardiac catheterization 07/06/2024 status post PTCA/ADRY with a Medtronic lucie Baker 2.5 x 15 mm stent Persisting moderate coronary artery disease with 50% left main involvement with 40% mid to distal LAD stenosis, 70% ramus intermediate stenosis, 70% ostial PDA stenosis, and 60% mid PDA stenosis, managed medically Severe dilated, nonischemic cardiomyopathy with LVEF of 15-20% by 2D echo 08/12/2023 and by repeat 2D echo 12/18/2023 Moderate MR and moderate TR by 2D echocardiogram 12/18/2023 HISTORY OF INTOLERANCE OF JARDIANCE AND FARXIGA History of permanent atrial fibrillation/flutter Nonsustained wide complex tachycardia/aberrancy Status post biventricular pacemaker/AICD with Medtronic Cl[place] MRI ASBESTOS ABATEMENT WORKER-D 09/08/[address] 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 Obstructive sleep apnea Fibrotic versus thrombotic thickening of the right atrial lead by 2D echo 12/18/2023 Moderate MR and moderate TR by 2D echo 12/18/2023 Principle Procedures Performed: DATE OF PROCEDURE: 07/06/2024 PROCEDURE PERFORMED: LEFT HEART CATHETERIZATION, RIGHT AND LEFT SELECTIVE CORONARY ANGIOGRAM, PTCA AND ADRY TO THE POSTEROLATERAL SEGMENT WITH A 2.5 X 15 MM MEDTRONIC LUCIE FRONTIER ADRY, PERCLOSE SUTURE CLOSURE OF THE RIGHT COMMON FEMORAL ARTERY AND CONSCIOUS SEDATION Interval History: This 79-year-old Latin-[place]vian male, patient of mine at the [facility], has a history of 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 He ruled in for a non ST segment elevation myocardial infarction with a rise of cardiac troponin from 118>>>118>>>[id number]>>>904. The patient relates that his discomfort lasted only approximately 30 minutes. His EKG on arrival demonstrates biventricular pacing in approximately 1-1.[address] depression in V2. His troponin trend suggest that troponin sample 3 was a lab error. He was scheduled for a left heart catheterization on 07/05/2024 but because of an abnormal creatinine the procedure has been rescheduled. Admission creatinine was 2.4, repeat 1.5, and repeat 2.7. He does have known stage IV chronic renal insufficiency. The patient underwent cardiac catheterization 07/06/2024 demonstrating a 50% lef t main stenosis, 40% mid to distal LAD stenosis, 70% proximal ramus intermediate stenosis, 70% ostial and 60% mid PDA stenoses, as well as a 99% stenosis in the posterolateral segment of the distal RCA. He underwent successful PTCA and stenting with a 2.5 x 15 mm Medtronic lucie Baker ADRY without complication. He had an uneventful postprocedural course without bleeding or hematoma. Plans are for triple antithrombotic therapy with a reduced dose of Eliquis 2.5 b.i.d. given his advanced age and chronic renal insufficiency with creatinine greater than 1.5, in combination with aspirin 81 mg daily plus clopidogrel 75 mg daily for 30 days. After 30 days plans will be to withdrawal aspirin and continue Eliquis plus clopidogrel with Eliquis at 5 mg b.i.d. Physical Examination: GENERAL: No acute distress. HEAD: Normal with no signs of head trauma. EYES: PERRLA, EOMI, conjunctiva and sclera normal. NECK: Supple without JVD. There is no tenderness, lymphadenopathy, or masses. No thyromegaly. Normal carotid upstrokes without bruits. LUNGS: Clear breath sounds bilaterally. Diminished breath sounds at the bases. No wheezes, or rhonchi. HEART: Normal rate and rhythm. Normal S1 and S2 without murmurs, gallop or rub. VASC: Peripheral pulses +2 bilaterally. EXT: No clubbing, cyanosis or edema. NEURO: Awake, alert, and oriented x3. No focal neurological deficits noted. Discharge Medications: Eliquis 2.5 mg p.o. b.i.d. Aspirin 81 mg p.o. daily Clopidogrel 75 mg p.o. daily Furosemide 20 mg p.o. daily Entresto 24/26 mg p.o. b.i.d. Ezetimibe 10 mg p.o. daily Levothyroxine 100 mcg p.o. daily Magnesium 250 mg p.o. daily Metoprolol succinate ER 50 mg p.o. daily Rosuvastatin 40 mg p.o. daily Spironolactone 12.5 mg p.o. daily Discharge Follow-up: Follow up at the [facility] in one week with Dr. Evelyn Gonzalez Discharge Recommendations: Plans are for triple antithrombotic therapy with a reduced dose of Eliquis 2.5 b.i.d. given his advanced age and chronic renal insufficiency with creatinine greater than 1.5, in combination with aspirin 81 mg daily plus clopidogrel 75 mg daily for 30 days. After 30 days plans will be to withdrawal aspirin and continue Eliquis plus clopidogrel with Eliquis at 5 mg b.i.d. AYAAN GONZALEZ MD Jul 07, 2024 08:57
[2024-07-07] MEDS ORDERED: SACU1TAB PO (08:58)
--- NOTE | 2024-07-07 09:00 | PN ---
FOLLOWUP PROGRESS NOTE SUBJECTIVE: A 79-year-old male with history of diabetes mellitus, hypertension. He has history of known coronary artery disease. The patient initially presented with congestive heart failure. The patient did have episode of acute on chronic renal dysfunction in the hospital. The patient did undergo heart catheterization yesterday with intervention. The patient's creatinine has remained stable overnight. He continues with the IV hydration and the patient is being seen as a followup visit for all of the above. REVIEW OF SYSTEMS: GENERAL: He is feeling weak and tired. HEENT: No change in vision. No change in hearing. CARDIOVASCULAR: No current chest pains or palpitations. PULMONARY: There is no shortness of breath. GASTROINTESTINAL: He is tolerating diet. MUSCULOSKELETAL: Complains of weakness. PHYSICAL EXAMINATION:. VITAL SIGNS: Blood pressure was 141/71, pulse 70s, he is afebrile. GENERAL: He is a chronically ill male, elderly, lying in bed on medical floor. Atraumatic. Pupils equal roving to light. Oropharynx is without exudate. Nares clear. NECK: There is no JVP. There is no thyromegaly, no mass. CARDIOVASCULAR: Regular. There is no S3, S4 gallop. LUNGS: Coarse with equal thoracic movement. ABDOMEN: Soft, nondistended, nontender. EXTREMITIES: Reveal no clubbing, no cyanosis. NEUROLOGIC: He is awake. He is alert. He is oriented. LABORATORY DATA: Hemoglobin 13. Hematocrit 41. Sodium 139, potassium 4.7, BUN 30, creatinine is 2. IMPRESSION: * Acute renal failure. * Congestive heart failure. * Coronary artery disease, status post intervention. * Hypertension. PLAN: The patient's renal function continues to stabilize. The patient's urine output has been excellent overnight. The patient's IV fluids can safely be discontinued. The patient is being seen by Cardiology. Once the patient is discharged, the patient can follow up in the [facility]. TID: [id number] RECEIPT: [id number]
[2024-07-07] MEDS: SACUBITRIL/VALSARTAN 1 EACH TABLET PO ONE (09:30)
[2024-07-07] MEDS: furoSEMIDE 20MG VIAL IV ONE (09:30)
--- NOTE | 2024-07-07 11:16 | DS ---
Discharge Summary Hospital Course Summary: This is a 79-year-old male with past medical history of hypertension, hypothyroidism, atrial fibrillation, CHF with AICD, hyperlipidemia, BPH and diabetes who was brought by ambulance to the ED for complaints of chest pain and nausea which started 3 days ago. As per patient he was carrying groceries and was dropped off by the bus and he had to walk 300 yards to his house. Upon arrival to his house patient was short of breath but he managed to cook his food and eat his meal. Patient stated he took a nap for 2 hours he said and when he woke up he was still having shortness of breath and jaw pain as well so he called his relative who is a nurse practitioner and instructed him to go to the ER ,thus prompted this admission. Upon arrival to ER patient was not having chest pain but continued to be short of breath and he requested for oxygen. Seen and examined patient in the ER awake,alert and coherent on oxygen supplementation. Patient denied any chest pain,palpitation,nausea,vomiting,cough and shortness of breath. In the ER latest vital signs temperature 98.1, heart rate 85, blood pressure 119/73, saturation 97% on room air. In the ER Labs: Hemoglobin 13, hematocrit 42, platelet count 145. Sodium 140, potassium 4.8, chloride 106, BUN 29, creatinine 2.4, GFR 27, glucose 200 troponin 118, BNP 1580. Chest x-ray result revealed small left pleural effusion subjacent passive atelectasis. EKG result revealed AFib/a flutter and ventricular paced rhythm heart rate 74. While in the ER patient received furosemide 20 mg IV and aspirin 325 mg p.o. Patient was admitted for further evaluation and medical management 07/04 patient is seen and examined at bedside, alert oriented x3, hemodynamically stable, following commands, denied chest pain, no shortness shortness for breath, no nausea, no vomiting, no abdominal discomfort. 07/05 patient is seen and examined at bedside, case discussed with the RN, no acute events overnight, the patient had episode of loose stool this morning, he is requesting Imodium, BP 135/77, afebrile, saturating normal on room air, the patient is alert oriented x3, hemodynamically stable, no chest pain, shortness shortness for breath, no nausea, no vomiting. Creatinine today at 2.7 07/06 patient is seen and examined at bedside, case discussed with the RN, no acute events overnight, patient hemodynamically stable, alert oriented x3, denied chest pain, denies shortness a breath, no nausea, no vomiting, he remains on heparin drip as well as dopamine drip, NPO, scheduled for left heart catheterization today. Patient underwent left heart catheterization 07/06/24 with the following impression and recommendations: IMPRESSION: Non ST segment elevation WI secondary to 99% stenosis in the posterolateral segment prior to [place] [address]. 50% left main stenosis with otherwise borderline nonobstructive coronary artery disease with 40% mid to distal LAD stenosis, 60% diagonal one stenosis, 70% ramus intermediate stenosis, and 70% ostial PDA stenosis. Nonischemic cardiomyopathy with LVEF of 15-20%. Successful PTCA and stenting of the posterolateral segment with a Medtronic Lucie Vermillion 2.5 x 15 mm drug-eluting stent RECOMMENDATION: Dual antiplatelet therapy for three months followed by single antiplatelet ther apy with Eliquis for chronic atrial fibrillation Risk factor modification The patient is hemodynamically stable, alert oriented x3, cleared from Cardiology standpoint to be discharged home. Plans are for triple antithrombotic therapy with a reduced dose of Eliquis 2.5 b.i.d. given his advanced age and chronic renal insufficiency with creatinine greater than 1.5, in combination with aspirin 81 mg daily plus clopidogrel 75 mg daily for 30 days. After 30 days plans will be to withdrawal aspirin and continue Eliquis plus clopidogrel with Eliquis at 5 mg b.i.d. Bsw(s): Cardiology Procedure(s): The patient underwent cardiac catheterization 07/06/2024 demonstrating a 50% left main stenosis, 40% mid to distal LAD stenosis, 70% proximal ramus intermediate stenosis, 70% ostial and 60% mid PDA stenoses, as well as a 99% stenosis in the posterolateral segment of the distal RCA. He underwent successful PTCA and stenting with a 2.5 x 15 mm Medtronic lucie Vermillion ADRY without complication. He had an uneventful postprocedural course without bleeding or hematoma. Assessment/Plan: FINAL DIAGNOSIS [Non STEMI Troponin pattern 118>>>118>>>[id number]>>>904 >>> 458 99% distal RCA stenosis in the posterolateral segment by cardiac catheterization 07/06/2024 status post PTCA/ADRY with a Medtronic lucie Vermillion 2.5 x 15 mm stent Persisting moderate coronary artery disease with 50% left main involvement with 40% mid to distal LAD stenosis, 70% ramus intermediate stenosis, 70% ostial PDA stenosis, and 60% mid PDA stenosis, managed medically Severe dilated, nonischemic cardiomyopathy with LVEF of 15-20% by 2D echo 08/12/2023 and by repeat 2D echo 12/18/2023 Moderate MR and moderate TR by 2D echocardiogram 12/18/2023 HISTORY OF INTOLERANCE OF JARDIANCE AND FARXIGA History of permanent atrial fibrillation/flutter Nonsustained wide complex tachycardia/aberrancy Status post biventricular pacemaker/AICD with [employer] [employer]-D 09/08/[address] 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 Yash Reyes as an outpatient. Patient advised to return to the hospital if his condition changes. The patient agreed with the plan and understood the information provided. Plans are for triple antithrombotic therapy with a reduced dose of Eliquis 2.5 b.i.d. given his advanced age and chronic renal insufficiency with creatinine greater than 1.5, in combination with aspirin 81 mg daily plus clopidogrel 75 mg daily for 30 days. After 30 days plans will be to withdrawal aspirin and continue Eliquis plus clopidogrel with Eliquis at 5 mg b.i.d. Home Medications: Reported Medications D3/E/Se/Soy Isofl/Tocoph/Lycop (Prostate 2.4 Capsule) 1,200-15-35 Capsule, 1 EACH PO AM, CAP 01/19/24 Folic Acid (Folic Acid) 0.8 Mg Capsule, 1 CAP PO DAILY for 30 Days, #30 CAP 0 Refills 01/19/24 Magnesium (Magnesium) 250 Mg Tablet, 1 TAB PO DAILY for 30 Days, #30 TAB 0 Refills 01/19/24 Apixaban (Eliquis) 5 Mg Tablet, 1 TAB PO BID for 30 Days, #60 TAB 0 Refills 01/19/24 Levothyroxine Sodium (Levothyroxine) 100 Mcg Capsule, 100 MCG PO AM, CAP 01/19/24 Sacubitril/Valsartan (Entresto 49 mg-51 mg Tablet) 49 Mg-51 Mg Tablet, 1 TAB PO BID for 30 Days, #60 TAB 0 Refills 01/19/24 Furosemide (Furosemide) 20 Mg Tablet, 20 MG PO AD PRN for SWELLING, TAB 09/06/23 Rosuvastatin Calcium (Rosuvastatin Calcium) 40 Mg Tablet, 40 MG PO HS, TAB 09/06/23 Spironolactone (Spironolactone) 25 Mg Tablet, 12.5 MG PO DAILY, TAB 09/06/23 Metoprolol Succinate (Metoprolol Succinate) 50 Mg Tab.er.24h, 50 MG PO DAILY, TAB 09/06/23 Ezetimibe (Ezetimibe) 10 Mg Tablet, 10 MG PO HS, TAB 09/06/23 Discontinued Reported Medications Loperamide HCl (Loperamide) 2 Mg Capsule, 2 MG PO QODAY, CAP 09/06/23 Discontinued Scripts Amoxicillin/Potassium Clav (Amox Tr-K Clv 875-125 mg Tab) 875 Mg-125 Mg Tablet, 1 TAB PO BID for 7 Days, #14 TAB 0 Refills Prov:AKIL LINDQUIST 02/18/24 Time spent arranging discharge: 31-60 minutes GISSEL MOELLER MD Jul 07, 2024 11:16
--- NOTE | 2024-07-07 12:06 | HMCIMG ---
CHEST 1VW HISTORY: Post procedure COMPARISON: 07/03/2024 FINDINGS: A frontal projection of the chest was obtained. Mild bilateral pulmonary infiltrates are seen may be related to mild pulmonary vascular congestion with possible superimposed pneumonitis. The heart is borderline enlarged. Pacemaker is seen entering from the left. Degenerative changes are seen. IMPRESSION: 1. Mild bilateral pulmonary infiltrates are seen may be related to mild pulmonary vascular congestion with possible superimposed pneumonitis.
--- NOTE | 2024-07-07 17:06 | NUR ---
Discharge instructions given to patient. Verbalized understanding to follow up with appointments and take medications as prescribed. PIV removed using aseptic technique. Transferred via wheelchair to main lobby. Awaiting stunt driver due to lack of transportation.
== END 2024-07-07 17:06 | disposition home or self-care (01) | DRG 321 ==
LOC: EDH 19:45 → EDHIP 21:07 → UNDOADMIN 21:07 → EDHIP 21:10 → 2CH 23:51 → EDHIP 07-04 00:50 → 2BH 07-04 00:53
PROVIDERS: ADMIT Internal Medicine; ATTEND Internal Medicine
PROC: 027034Z Dilation of Coronary Artery, One Artery with Drug-eluting Intraluminal Device, Percutaneous Approach (ICD-10-PCS; principal; 2024-07-06)
PROC: 4A023N7 Measurement of Cardiac Sampling and Pressure, Left Heart, Percutaneous Approach (ICD-10-PCS; 2024-07-06)
PROC: B2111ZZ Fluoroscopy of Multiple Coronary Arteries using Low Osmolar Contrast (ICD-10-PCS; 2024-07-06)
DX: I21.4 Non-ST elevation (NSTEMI) myocardial infarction (principal); I50.23 Acute on chronic systolic (congestive) heart failure; I13.0 Hypertensive heart and chronic kidney disease with heart failure and stage 1 through stage 4 chronic kidney disease, or unspecified chronic kidney disease; N17.9 Acute kidney failure, unspecified; I42.0 Dilated cardiomyopathy; I48.21 Permanent atrial fibrillation; I48.92 Unspecified atrial flutter; N18.4 Chronic kidney disease, stage 4 (severe); J98.11 Atelectasis; E11.65 Type 2 diabetes mellitus with hyperglycemia; E78.5 Hyperlipidemia, unspecified; E03.9 Hypothyroidism, unspecified; D64.9 Anemia, unspecified; E11.22 Type 2 diabetes mellitus with diabetic chronic kidney disease; N28.89 Other specified disorders of kidney and ureter; N40.0 Benign prostatic hyperplasia without lower urinary tract symptoms; G47.33 Obstructive sleep apnea (adult) (pediatric); I25.10 Atherosclerotic heart disease of native coronary artery without angina pectoris; Z79.01 Long term (current) use of anticoagulants; Z79.02 Long term (current) use of antithrombotics/antiplatelets; Z79.82 Long term (current) use of aspirin; Z95.810 Presence of automatic (implantable) cardiac defibrillator
CPT/HCPCS: 36415; 71045; 76770; 80048; 80053; 80061; 80305; 81001; 82550; 82570; 82948; 83036; 83540; 83550; 83735; 83880; 84300; 84484; 85025; 85027; 85347; 85610; 85730; 93005; 93458; 99156; 99157; 99291; C1760; C1769; C1887; C1894; C9600; G0378; J0583; J1265; J1644; J1756; J1940; J2250; J3010; J3475; J3490; J7050; Q9967; C1874; Q9965